=== PATIENT | male | born 1965 | race African-American/Black ===

== ENCOUNTER 2024-07-22 09:10 | Emergency (ER) | payer OTHER, SELFPAY ==
--- NOTE | ~2024-07-22 | XR_ITS ---
EXAM/PROCEDURE: XR chest 1V - 07/22/2024 09:40 CDT HISTORY: 59 years old Male with DIZZINESS, SLURRED SPEECH, WEAKNESS TECHNIQUE: AP view(s) of the chest. COMPARISON: None available. FINDINGS: LUNGS/ PLEURA: No focal consolidation. No appreciable pneumothorax or large pleural effusion. HEART/ MEDIASTINUM: Mild cardiomegaly. BONES: No acute osseous abnormality. OTHER: Visualized upper abdomen is unremarkable. IMPRESSION: No acute process. Mild cardiomegaly. Reviewed, dictated and finalized at location A.
--- NOTE | ~2024-07-22 | CT_ITS ---
EXAM: CTA brain carotid - 07/22/2024 10:20 CDT History: 59 years old Male with L sided HAs, vision changes, R hand tingling TECHNIQUE: CTA of the head and neck with intravenous contrast was performed. 3-D reconstructed image s of cerebral artery circulation were generated on a [employer] ([employer]) workstation. Automatic exposure contro l was used for this study. CONTRAST: 100 cc of Omnipaque 350 was used for this study COMPARISON: None available. FINDINGS: Normal branching pattern of the thoracic aorta. Great vessels of the neck are patent. RIGHT ANTERIOR CIRCULATION: Innominate and right common carotid artery is normal in caliber. No significant stenosis at the carotid bifurcation by NASCET criteria. Cervical segment of the internal carotid artery is normal in caliber. Cavernous and supraclinoid segm ents of the internal carotid artery patent. M1 segment and middle cerebral artery bifurcation are unremarkable. A1 segment, anterior communicating artery complex and A2 segment are within normal limits. LEFT ANTERIOR CIRCULATION: Left common carotid artery is normal in caliber. No significant stenosis at the carotid bifurcation by NASCET criteria. Cervical segment of the internal carotid artery is normal in caliber. Cavernous and supraclinoid segm ents of the internal carotid artery patent. M1 segment is grossly unremarkable. 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 Given the lack of imaging evidence on other views, the findings are likely projectional. A1 segment, anterior communicating artery complex and A2 segment are within normal limits. POSTERIOR CIRCULATION: Vertebral arteries are codominant and patent throughout the neck. Intradural vertebral arteries are normal in caliber and terminate as the basilar artery. Basilar artery is normal in caliber. P1 and P2 segments of the posterior cerebral arteries are normal in caliber. OTHER: Visualized lungs are clear. IMPRESSION: Unremarkable CTA of the head and neck. No evidence of cerebral artery aneurysm, stenosis or mass. 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 Given the lack of imaging evidence on other views, the findings are likely projectional. These findings were communicated to Mirela Lanza PA-C by Dr. Ayush Mayfield, on 07/22/2024 10:28 CDT at who expressed understanding. *REFERENCES: NASCET CRITERIA: The degree of internal carotid artery (ICA) stenosis is based on NASCET criteria. No rmal is no stenosis. Mild is less than 50% stenosis. Moderate is 50-69% stenosis. Severe is 70-99% st enosis. Total occlusion is no detectable patent lumen. Reviewed, dictated and finalized at location A. IMPRESSION: Unremarkable CTA of the head and neck. No evidence of cerebral artery aneurysm , stenosis or mass. 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 Given the lack of im aging evidence on other views, the findings are likely projectional. These findings were communicated to Mirela Lanza PA-C by Dr. Ayush amato, on 07/22/2024 10:28 CDT at who expressed understanding. *REFERENCES: NASCET CRITERIA: The degree of internal carotid artery (ICA) stenosis is based on NASCET criteria. Normal is no stenosis. Mild is less than 50% stenosis. Mode rate is 50-69% stenosis. Severe is 70-99% stenosis. Total occlusion is no detec table patent lumen.
--- NOTE | ~2024-07-22 | CT_ITS ---
EXAM: CT brain wo con - 07/22/2024 09:35 CDT History: 59 years old Male with L RODGERS, vision changes, R hand tingling COMPARISON: None available. PROCEDURE: CT of the head without contrast. Axial, sagittal and coronal reformatted planes were chris luated. Automatic exposure control was used for this study. FINDINGS: BRAIN PARENCHYMA: No acute hemorrhage. No mass effect or herniation. Hernández-white matter differentiatio n is maintained. Normal appearance of cortex. VENTRICLES/ EXTRA-AXIAL SPACES: No hydrocephalus or extra-axial fluid collection. EXTRACRANIAL STRUCTURES: No calvarial fracture. IMPRESSION: No evidence for acute intracranial hemorrhage or calvarial fracture. Reviewed, dictated and finalized at location A.
[2024-07-22 09:17] VITALS: BP 131/81; PULSE 52; RESP 16; TEMP 36.6; O2SAT 97
--- NOTE | 2024-07-22 09:27 | ECG_ITS ---
Test Date: 2024-07-22 09:36:19 Measurements Intervals [place] Rate: 52 P: 58 WA: 182 QRS: -6 QRSD: 92 T: 8 QT: 443 QTc: 414 Interpretive Statements SINUS BRADYCARDIA BORDERLINE ECG No previous ECG available for comparison Electronically Signed On 07-22-2024 09:48:51 CDT by Evans Rodriguez D.O.
[2024-07-22 09:48] LABS: Hematocrit 40.7 % (42.0-52.0); Hemoglobin 12.8 g/dL (14.0-18.0); Mean Corpuscular HGB Conc 31.4 g/dl (32-36); Mean Corpuscular Volume 82.7 fl (80-100); Mean Platelet Volume 12.3 fl (7.4-10.4); Platelet Count Result 204 k/mm3 (150-375); Red Blood Count 4.92 M/mm3 (4.6-6.20); Red Cell Distribution Width 14.5 % (11.5-14.5); White Blood Count 3.7 K/mm3 (4.5-10.0)
[2024-07-22] MEDS: ACETAMINOPHEN 500 MG TABLET 1000 MG PO (09:50)
[2024-07-22] MEDS: METOCLOPRAMIDE HCL INJ 10 MG/2 ML VIAL IV PUSH (09:50)
[2024-07-22] MEDS: SODIUM CHLORIDE 0.9% IV 1,000 ML 999 ML IV CONT (09:50)
[2024-07-22] MEDS: diphenhydrAMINE HCl INJ 50 MG/ML VIAL 25 MG IV PUSH (09:50)
[2024-07-22 10:01] LABS: INR 0.9; Partial Thromboplastin Time 27.3 Seconds (22.3-36.8)
[2024-07-22 10:11] LABS: Alanine Aminotransferase 27 U/L (6-50); Alkaline Phosphatase 60 U/L (38-126); Anion Gap 8 mmol/L (4-12); Aspartate Amino Transferase 32 U/L (17-59); Bilirubin,Total 0.3 mg/dL (0.2-1.3); Blood Urea Nitrogen 13 mg/dL (9-20); Calcium 9.1 mg/dL (8.4-10.2); Carbon Dioxide 28 mmol/L (22-30); Chloride 106 mmol/L (98-107); Estimated CRCL calculation 77 ml/min; Estimated Glomerular Filt Rate 52; Glucose 96 mg/dL (65-110); Potassium 4.1 mmol/L (3.4-5.0); Sodium 142 mmol/L (137-145)
--- NOTE | 2024-07-22 10:16 | ED.HA ---
HPI - Headache General Chief Complaint: Headache Stated Complaint: 12 hr left head pain blanked out Time Seen by Provider: 07/22/24 09:14 Source: patient Mode of arrival: ambulatory Limitations: no limitations History of Present Illness HPI Narrative: Patient is a 59-year-old male, with PMH of hypothyroidism, GERD, who presents the ED with report of left-sided headache. Patient reports he was out to dinner last night with his when he had a sudden onset of sharp pain in his left sided head. States pain radiated from his left occipital region throughout his left-sided head. He states he had sudden lack of his left eye vision any felt as though he nearly blacked out. He did not lose consciousness. States pain lasted for approximately 15 seconds before spontaneously resolving. Patient experienced recurrent symptoms this morning, again brief. He then prompted here for further evaluation. He does complain of a dull left-sided headache currently. He also reports having some tingling in his right hand currently. Denies vision changes currently. Reports feeling somewhat lightheaded. Denies weakness or numbness in lower extremities. Denies slurred speech or confusion. Denies history of migraines. Related Data Allergies Allergy/AdvReac Type Severity Reaction Status Date / Time No Known Allergies Allergy Verified 07/22/24 09:11 Review of Systems Review of Systems: All systems reviewed & are unremarkable except as noted in HPI. All systems reviewed & are unremarkable except as noted in HPI and below Exam Narrative: GENERAL: Well appearing, obese with BMI of 31.8, non-toxic, in no acute distress. HEAD: Normocephalic, atraumatic. EYES: PERRL/EOMI, conjunctivae clear bilaterally. No nystagmus. NECK: Supple. No meningeal signs. RESPIRATORY: Airway patent, respirations nonlabored. Clear to auscultation bilaterally, no rales, rhonchi, wheezing. CARDIOVASCULAR: Regular rate and rhythm without murmurs, rubs, or gallops. Peripheral pulses 2+ and equal bilaterally. MUSCULOSKELETAL: Moves all extremities. No gross deformities. SKIN: Warm, dry, normal color. No rashes. NEURO: A&O X3. Speech clear. Follows commands. CN II-XII intact. Subjective decreased sensation to right upper extremity compared to left upper extremity. No ataxic movements. Strength 5/5 in upper and lower extremities bilaterally. Knio-bn-rfyn and lgsjui-hx-rzyo testing intact bilaterally. No pronator drift. 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 PSYCHIATRIC: Appropriate mood and affect. Normal interaction. Course Vital Signs Vital signs: Vital Signs Temperature 98 F 07/22/24 09:17 Pulse Rate 52 L 07/22/24 09:17 Respiratory Rate 16 07/22/24 09:17 Blood Pressure 131/81 07/22/24 09:17 Pulse Oximetry 97 07/22/24 09:17 Oxygen Delivery Room Air 07/22/24 09:17 Temperature 98 F 07/22/24 09:17 Pulse Rate 50 L 07/22/24 10:48 Respiratory Rate 18 07/22/24 10:48 Blood Pressure 119/84 07/22/24 10:48 Pulse Oximetry 97 07/22/24 10:48 Oxygen Delivery Room Air 07/22/24 09:17 MDM - Headache MDM Narrative Medical decision making narrative: Patient presented to ED with intermittent left-sided headaches with brief vision changes, tingling in right-sided hand. Vital signs are stable upon arrival. Blood pressure stable. He currently complains of slight left-sided dull headache. Neurologic exam with subjective decreased sensation right upper extremity compared to left, otherwise intact. No other focal deficits appreciated. No current vision changes. CT brain noncontrast negative. EKG with sinus bradycardia, no concerning ST changes. Troponin undetectable. Basic laboratory studies are fairly unremarkable. White blood cell count 3.7. Creatinine 1.41. No records to compare to. Patient given fluids and migraine cocktail in the ED. On reeval, still having some discomfort but feeling improved. No severe pain like what occurred last night. CTA brain/carotids obtained, notified by radiologist about an area of stenosis in superior division of L MCA, however after additional imaging/views obtained, these findings were not seen. Likely projectional. Discussed case with Dr. Duffy, neurology, recommended MRA/MRI, will consult. Possibly occipital neuralgia? Patient w/o any tenderness over occipital region on exam. He is down in ED to see patient. Again recommends MRI/MRA. Discussed these recommendations with patient. He does not wish to be admitted at this time. States he would like to follow-up with his primary care doctor for this and outpatient imaging. He is adamant that he does not want to stay in the hospital. Discussed that with neurology recommending admission/further imaging, if patient decided to leave, he would need to sign out against medical advice. Patient is alert oriented x4, of sound mind, capable of making his own decisions, agreeable to sign out AMA. Discussed risks of leaving AMA, including recurrent CVA, , disability. Patient voiced understanding. Patient advised he can return at any time to resume evaluation. Given strict return precautions. Patient ambulatory out of the facility in stable condition. Medical Records Attestation: I reviewed the patient's medical records. Lab Data Attestation: I reviewed the patient's lab results. 07/22/24 09:31 07/22/24 09:31 Labs: Lab Results 07/22/24 Range/Units 09:31 WBC 3.7 L (4.5-10.0) K/mm3 RBC 4.92 (4.6-6.20) M/mm3 Hgb 12.8 L (14.0-18.0) g/dL Hct 40.7 L (42.0-52.0) % MCV 82.7 (80-100) fl MCH 26.0 (26-34) pg MCHC 31.4 L (32-36) g/dl RDW 14.5 (11.5-14.5) % Plt Count 204 (150-375) k/mm3 MPV 12.3 H (7.4-10.4) fl Immature Gran % (Auto) Not Reportable Neut % (Auto) Not Reportable Lymph % (Auto) Not Reportable [place] % (Auto) Not Reportable Eos % (Auto) Not Reportable Baso % (Auto) Not Reportable Lymph # (Auto) Not Reportable [place] # (Auto) Not Reportable Eos # (Auto) Not Reportable Baso # (Auto) Not Reportable Abs Immat Gran (auto) Not Reportable Absolute Neuts (auto) Not Reportable Absolute Nucleated RBC Not Reportable Nucleated RBC % Not Reportable PT 13.0 (11.1-14.7) Seconds INR 0.9 APTT 27.3 (22.3-36.8) Seconds Sodium 142 (137-145) mmol/L Potassium 4.1 (3.4-5.0) mmol/L Chloride 106 (98-107) mmol/L Carbon Dioxide 28 (22-30) mmol/L Anion Gap 8 (4-12) mmol/L BUN 13 (9-20) mg/dL Creatinine 1.41 H (0.7-1.3) mg/dL Estim Creat Clear Calc 77 ml/min Estimated GFR 52 L (59 - ) Glucose 96 (65-110) mg/dL Calcium 9.1 (8.4-10.2) mg/dL Total Bilirubin 0.3 (0.2-1.3) mg/dL AST 32 (17-59) U/L ALT 27 (6-50) U/L Alkaline Phosphatase 60 (38-126) U/L Troponin I < 0.012 (0.000-0.034) ng/mL Total Protein 7.0 (6.3-8.2) g/dL Albumin 4.0 (3.5-5.1) g/dL TSH (Reflex) 2.020 (0.465-4.68) uIU/mL Imaging Data Attestation: I personally reviewed and interpreted this imaging study as follows: Radiologist's impression: ITS Impressions Head CT 07/22/24 09:47 IMPRESSION: No evidence for acute intracranial hemorrhage or calvarial fracture. Chest X-Ray 07/22/24 09:50 IMPRESSION: No acute process. Mild cardiomegaly. Head/Neck CTA 07/22/24 10:40 IMPRESSION: Unremarkable CTA of the head and neck. No evidence of cerebral artery aneurysm, stenosis or mass. 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 Given the lack of imaging evidence on other views, the findings are likely projectional. These findings were communicated to Mirela Lanza PA-C by Dr. Ayush Mayfield, on 07/22/2024 10:28 CDT at who expressed understanding. *REFERENCES: NASCET CRITERIA: The degree of internal carotid artery (ICA) stenosis is based on NASCET criteria. Normal is no stenosis. Mild is less than 50% stenosis. Moderate is 50-69% stenosis. Severe is 70-99% stenosis. Total occlusion is no detectable patent lumen. ECG Data EKG #1: Attestation: I personally reviewed and interpreted this ECG as follows: ECG completion date: 07/22/24 ECG completion time: 09:36 EKG Interpretation: bradycardia (52), sinus rhythm and no ST changes Discharge Plan Discharge Clinical Impression: Left-sided headache, Paresthesias in right hand Patient Disposition: Left Against Medical Advice Condition: Stable Instructions: Antibiotic Form, Acute Headache (ED), Stroke Prevention (ED) Additional Instructions: It was recommended that you stay in the hospital to receive MRI/MRA imaging of your brain. You are deciding against this. Follow-up closely with your primary care doctor for further evaluation. You may return to the ED at any time to resume evaluation. Additionally, return if you experience recurrent symptoms, worsening or severe pain, vision changes, worsening numbness or weakness of arm or leg, or any other symptoms of concern. Patient Language: Marshallese Follow-up/Referrals: Andrea Duffy MD [Physician] - (NEUROLOGY) [facility] [Primary Care Provider] - Time of Disposition: 12:32
[2024-07-22 10:25] LABS: Troponin I < 0.012 ng/mL (0.000-0.034)
--- OUTSIDE RECORDS SUMMARY | 2024-07-22 10:26 | XMS_ITS | Continuity of Care Document ---
Author Name [facility] Organization [facility] Care Team Providers Care Rn Family Practice Name Role Phone [facility] Unavailable Unavailable Problems Combined list of problems from Department of Defense and Veterans Affairs facilities. It does not include entries that were removed or entered in error. Problem Status Onset Date Problem Type Date of Resolution Comments Source Anxiety Active Condition [facility] Bunion Active Condition [facility] Cervicalgia Active Condition [facility] Chronic kidney disease stage 3A Active Condition [facility] Exposure to potentially hazardous substance Active Condition [facility] Gastroesophageal reflux disease Active Condition [facility] Hoarseness Active Condition [facility] Hyperlipidemia Active Condition [facility] Hypothyroid (SNOMED CT 10259566) Active Condition [facility] Irritable bowel syndrome Active Condition [facility] Low back pain (SNOMED CT 722351776) Active Condition [facility] MED EXAM NEC-ADMIN PURP Active Condition [facility] Obesity Active Condition [facility] Prediabetes Active Condition [facility] Tinnitus Active Condition [facility] Vitamin D deficiency Active Condition [facility] Decreased Libido (ICD-9-CM 799.81) Inactive Condition 05/27/2023 [facility] Knee pain (SNOMED CT 52401202) Inactive Condition 05/27/2023 [facility] Metabolic bone disease Inactive Condition 05/27/2023 [facility] Numbness * (ICD-9-CM 782.0) Inactive Condition 05/27/2023 [facility] Pain in joint involving shoulder region (ICD-9-CM 719.41) Inactive Condition 05/27/2023 [facility] Stomach cramps Inactive Condition 05/27/2023 [facility] Vitamin B12 deficiency (non anemic) (SNOMED CT 68909763) Inactive Condition 06/14/2024 [facility] Vitamin D Deficiency Inactive Condition 05/27/2023 [facility] Wrist Pain Inactive Condition 05/27/2023 [facility] Diagnosis: ICD-10-CM Z02.89 Encounter for other administrative examinations Active Diagnosis [facility] Diagnosis: ICD-10-CM N18.31 Chronic kidney disease, stage 3a Active Diagnosis [facility] Diagnosis: ICD-10-CM R73.03 Prediabetes Active Diagnosis [facility] Diagnosis: ICD-10-CM Z00.00 Encntr for general adult medical exam w/o abnormal findings Active Diagnosis [facility] Diagnosis: ICD-10-CM Z23 Encounter for immunization Active Diagnosis [facility] Diagnosis: ICD-10-CM K58.9 Irritable bowel syndrome, unspecified Active Diagnosis [facility] Diagnosis: ICD-10-CM Z12.11 Encounter for screening for malignant neoplasm of colon Active Diagnosis [facility] Diagnosis: ICD-10-CM Z91.89 Oth personal risk factors, not elsewhere classified Active Diagnosis [facility] Medications Combined list of outpatient medications from Department of Defense and Veterans Affairs facilities.Medications provided include 1) outpatient medications from the last 15 months, and 2) patient-reported medications. Medication Details Route Status Patient Instructions Prescription Expires Prescription Number Last Dispense Date Ordering Provider Order Date Order Qty Source ACETAMINOPH EN TAB TAKE BY MOUTH FOUR TIMES A DAY NEEDED ORAL ACTIVE AUSTEN,SHE LBY R 2023 [facility] BISACODYL 5MG TAB,EC TAKE TWO TABLETS BY MOUTH DIRECTED AT 4PM 2 DAYS PRIOR TO TEST AND REPEAT AT 4PM ON DAY PRIOR TO TEST. CALL FOR QUESTION S. AT 4PM 2 DAYS PRIOR TO TEST AND REPEAT AT 4PM ON DAY PRIOR TO TEST. CALL FOR QUESTION S. ORAL 09/17/2023 [id number] 4 VALERIO TREJO 2023 4 [facility] BISACODYL 5MG TAB,EC TAKE TWO TABLETS BY MOUTH ONE TIME TAKE BISACODY L TABLETS AT 4PM ON AFTERNOO N PRIOR TO TEST. CALL [phone] WITH ANY QUESTION S ABOUT THESE INSTRUCT IONS. MAIL TAKE BISACODY L TABLETS AT 4PM ON AFTERNOO N PRIOR TO TEST. CALL WITH ANY QUESTION S ABOUT THESE INSTRUCT IONS. MAIL ORAL 06/26/2023 [id number] 4 Francine SALEEM 2023 2 [facility] N CHOLECALCIF JALEN 25MCG (1,000UNIT) TAB TAKE ONE TABLET BY MOUTH ONCE A DAY ORAL DISCONT INUED (EDIT) 05/28/2025 [id number] FRAN BOYCE VISHNUY R 2024 100 [facility] CHOLECALCIF JALEN 25MCG (1,000UNIT) TAB TAKE ONE TABLET BY MOUTH ONCE A DAY ORAL DISCONT INUED 05/27/2024 [id number] FRAN BOYCE LBY R 2023 100 [facility] CHOLECALCIF JALEN 50MCG (2,000UNIT) TAB TAKE ONE TABLET BY MOUTH ONCE A DAY ORAL ACTIVE 06/15/2025 [id number] 5 FRAN BOYCE LBY R 2024 100 [facility] CYANOCOBALA MIN 100MCG TAB TAKE ONE TABLET BY MOUTH ONCE A DAY FOR VITAMIN B12 SUPPLEME NTATION ORAL DISCONT INUED BY LEO R 06/26/2024 [id number] 4 FRAN BOYCE VISHNUY R 2023 100 [facility] DICYCLOMINE HCL 10MG CAP TAKE TWO CAPSULES BY MOUTH THREE TIMES A DAY FOR IRRITABL E BOWEL SYNDROME PAIN ORAL ACTIVE 02/12/2025 [id number] 5 [place] TRAN 2023 [facility] LEVOTHYROXI NE NA 75MCG TAB TAKE ONE TABLET BY MOUTH EVERY MORNING BEFORE A MEAL FOR THYROID. TAKE 30 MINUTES BEFORE FOOD. TAKE SEPARATE LY FROM ALL OTHER MEDICATI ONS. ORAL ACTIVE 05/28/2025 [id number] 5 FRAN BOYCE R 2024 90 [facility] LEVOTHYROXI NE NA 75MCG TAB TAKE ONE TABLET BY MOUTH EVERY MORNING BEFORE A MEAL FOR THYROID. TAKE 30 MINUTES BEFORE FOOD. TAKE SEPARATE LY FROM ALL OTHER MEDICATI ONS. ORAL DISCONT INUED 05/27/2024 [id number] 5 FRAN BOYCE R 2023 90 [facility] LIDOCAINE 5% PATCH APPLY 1 PATCH TO SKIN SITE ONCE A DAY NEEDED APPLY PATCH AND PRESS FIRMLY FOR 10-15 SECONDS. KEEP ON FOR 12 HOURS THEN REMOVE PATCH FOR 12 HOURS. TRANSD ERMAL ACTIVE 05/28/2025 [id number] 5 FRAN BOYCE R 2024 90 [facility] LIDOCAINE 5% PATCH APPLY 1 PATCH TO SKIN SITE ONCE A DAY NEEDED APPLY PATCH AND PRESS FIRMLY FOR 10-15 SECONDS. KEEP ON FOR 12 HOURS THEN REMOVE PATCH FOR 12 HOURS. TRANSD ERMAL DISCONT INUED 05/26/2024 [id number] 4 FRAN BOYCE R 2023 30 [facility] OMEPRAZOLE 40MG CAP,EC TAKE ONE CAPSULE BY MOUTH EVERY MORNING BEFORE A MEAL TO LOWER STOMACH ACID. TAKE 30 MINUTES PRIOR TO FOOD. ORAL ACTIVE 05/28/2025 [id number] 5 FRAN BOYCE R 2024 90 [facility] OMEPRAZOLE 40MG CAP,EC TAKE ONE CAPSULE BY MOUTH EVERY MORNING BEFORE A MEAL TO LOWER STOMACH ACID. TAKE 30 MINUTES PRIOR TO FOOD. ORAL DISCONT INUED 05/27/2024 [id number] 4 FRAN BOYCE R 2023 90 [facility] PEG-3350/EL ECTROLYTES PWDR MIX AND DRINK CONTENTS OF BOTTLE BY MOUTH DIRECTED FOR 2 DAYS BEFORE YOUR TEST ONLY DRINK CLEAR LIQUIDS- NO SOLID FOOD! AT 4PM TAKE THE 2 BISACODY L TABLETS AND MIX ONE GOLYTELY WITH WATER AND REFRIGER ATE. AT 7PM START TO DRINK THE GOLYTELY . REPEAT SAME PROCESS ON THE 2ND DAY. DO NOT DRINK ANYTHING AFTER MIDNIGHT . READ INSTRUCT ION SHEET! FOR 2 DAYS BEFORE YOUR TEST ONLY DRINK CLEAR LIQUIDS- NO SOLID FOOD! AT 4PM TAKE THE 2 BISACODY L TABLETS AND MIX ONE GOLYTELY WITH WATER AND REFRIGER ATE. AT 7PM START TO DRINK THE GOLYTELY . REPEAT SAME PROCESS ON THE 2ND DAY. DO NOT DRINK ANYTHING AFTER MIDNIGHT . READ INSTRUCT ION SHEET! ORAL 09/17/2023 [id number] 4 VALERIO TREJO 2023 2 [facility] N PEG-3350/EL ECTROLYTES PWDR MIX AND DRINK CONTENTS OF BOTTLE BY MOUTH DIRECTED (THE DAY BEFORE YOUR TEST ONLY DRINK CLEAR LIQUIDS- NO SOLID FOOD! TAKE THE BISACODY L TABLETS AT 4PM AND MIX THE GOLYTELY WITH WATER AND REFRIGER ATE. AT 7PM DRINK HALF OF THE GOLYTELY . REFRIGER ATE OVERNIGH T. COMPLETE GOLYTELY 3 HRS BEFORE LEAVING HOME FOR TEST. READ YOUR INSTRUCT IONS!) (THE DAY BEFORE YOUR TEST ONLY DRINK CLEAR LIQUIDS- NO SOLID FOOD! TAKE THE BISACODY L TABLETS AT 4PM AND MIX THE GOLYTELY WITH WATER AND REFRIGER ATE. AT 7PM DRINK HALF OF THE GOLYTELY . REFRIGER ATE OVERNIGH T. COMPLETE GOLYTELY 3 HRS BEFORE LEAVING HOME FOR TEST. READ YOUR INSTRUCT IONS!) ORAL 06/26/2023 [id number] Francine SALEEM 2023 1 [facility] N SIMETHICONE 80MG TAB,CHEW CHEW AND SWALLOW FOUR TABLETS BY MOUTH DIRECTED FOR GAS DISCOMFO RT FOR TWO DOSES BEFORE GI PROCEDUR E ORAL 09/17/2023 [id number] 4 VALERIO TREJO 2023 8 [facility] N SIMETHICONE 80MG TAB,CHEW CHEW AND SWALLOW FOUR TABLETS BY MOUTH DIRECTED FOR TWO DOSES BEFORE GI PROCEDUR E ORAL 06/26/2023 [id number] 4 Francine SALEEM HRISTINA 2023 8 [facility] N Immunizations Combined list of available immunizations from the Department of Defense and Veterans Affairs facilities. Immunization Series Date Given Administered By Site Reaction Lot Number CVX Code Drug Virtualization Engineer Status Comments Source INFLUENZA, SPLIT VIRUS, TRIVALENT, PF 2023 VINEET BARROS LEFT DELTO ID [id number] 140 complet ed [facility] N ZOSTER RECOMBINANT 2023 IRWIN ROJAS LEFT DELTO ID [id number] 187 complet ed [facility] ZOSTER RECOMBINANT 2023 ROSEMARIE SHEARER LEFT DELTO ID [id number] 187 complet [facility] INFLUENZA, INJECTABLE, QUADRIVALENT, PRESERVATIVE FREE 2022 VINEET BARROS LEFT DELTO ID [id number] 150 complet ed [facility] N INFLUENZA, INJECTABLE, QUADRIVALENT, PRESERVATIVE FREE 2021 LAN SANZ T LEFT DELTO ID [id number] 150 complet ed [facility] N INFLUENZA, INJECTABLE, QUADRIVALENT, PRESERVATIVE FREE 2020 150 complet ed [facility] N INFLUENZA, INJECTABLE, QUADRIVALENT, PRESERVATIVE FREE 2019 150 complet ed [facility] N INFLUENZA, INJECTABLE, QUADRIVALENT, PRESERVATIVE FREE 2017 150 complet ed [facility] TDAP 2016 115 complet ed Right Deltoid [facility] INFLUENZA, SEASONAL, INJECTABLE, PRESERVATIVE FREE 2015 140 complet ed [facility] N TDAP 2006 115 complet ed RAKESH Walker Results Combined list of recent chemistry, hematology and other laboratory results from Department of Defense and Veterans Affairs, ranging from 15 months to all on record, depending upon the facility. Order Name Results Value Reference Range Date Interpretation Specimen Comments Source PROTEIN URINE PROTEIN [MASS/VOLUM E] IN URINE 12.3 mg/dL 06/24 Specimen Type: URINE No comment entered. Ordering Provider: BELINAD BOSWELL Report Released Date/Time: Jun 22, 2024 10:24 AM Reporting Lab: [facility] [place] [address] Performing Lab: [facility] DIVISION MICRAL/CR EAT PROFILE (STL) ALBUMIN [MASS/VOLUM E] IN URINE 9 mg/L 06/24 Specimen Type: URINE No comment entered. Ordering Provider: BELINDA BOSWELL Report Released Date/Time: Jun 22, 2024 10:24 AM Reporting Lab: [facility] [place] [address] Performing Lab: [facility] DIVISION MICRAL/CR EAT PROFILE (STL) ALBUMIN/CRE ATININE [MASS RATIO] IN URINE 4 mg/g 0 - 29 06/24 Specimen Type: URINE No comment entered. Ordering Provider: BELINDA BOSWELL Report Released Date/Time: Jun 22, 2024 10:24 AM Reporting Lab: [facility] [place] [address] Performing Lab: [facility] MICRAL/CR EAT PROFILE (STL) CREATININE [MASS/VOLUM E] IN URINE 210.4 mg/dL 63.0 - 166.0 06/24 H Specimen Type: URINE No comment entered. Ordering Provider: BELINDA BOSWELL Report Released Date/Time: Jun 22, 2024 10:24 AM Reporting Lab: [facility] [place] [address] Performing Lab: [facility] DIVISION URINALYSI S (STL-PB) COLOR OF URINE Light- Yellow 05/28 Specimen Type: URINE No comment entered. Ordering Provider: KIMBERLEY BOYCE Report Released Date/Time: May 27, 2024 10:23 AM Reporting Lab: [facility] [place] [address] Performing Lab: [facility] URINALYSI S (STL-PB) BILIRUBIN.T OTAL [PRESENCE] IN URINE BY TEST STRIP Negati vemg/d L 05/28 Specimen Type: URINE No comment entered. Ordering Provider: KIMBERLEY BOYCE Report Released Date/Time: May 27, 2024 10:23 AM Reporting Lab: [facility] [place] [address] Performing Lab: [facility] URINALYSI S (STL-PB) PH OF URINE BY TEST STRIP 6.0 5.0 - 8.0 05/28 Specimen Type: URINE No comment entered. Ordering Provider: KIMBERLEY BOYCE Report Released Date/Time: May 27, 2024 10:23 AM Reporting Lab: [facility] [place] [address] Performing Lab: [facility] URINALYSI S (STL-PB) LEUKOCYTES [#/AREA] IN URINE SEDIMENT BY MICROSCOPY HIGH POWER FIELD 1 /[HPF] 0 - 5 05/28 Specimen Type: URINE No comment entered. Ordering Provider: KIMBERLEY BOYCE Report Released Date/Time: May 27, 2024 10:23 AM Reporting Lab: [facility] [place] [address] Performing Lab: [facility] URINALYSI S (STL-PB) ERYTHROCYTE S [#/VOLUME] IN URINE SEDIMENT BY MICROSCOPY HIGH POWER FIELD 3 /[HPF] 0 - 5 05/28 Specimen Type: URINE No comment entered. Ordering Provider: KIMBERLEY BOYCE Report Released Date/Time: May 27, 2024 10:23 AM Reporting Lab: [facility] [place] [address] Performing Lab: [facility] URINALYSI S (STL-PB) APPEARANCE OF URINE Clear 05/28 Specimen Type: URINE No comment entered. Ordering Provider: KIMBERLEY BOYCE Report Released Date/Time: May 27, 2024 10:23 AM Reporting Lab: [facility] [place] [address] Performing Lab: [facility] URINALYSI S (STL-PB) NITRITE [PRESENCE] IN URINE BY TEST STRIP Negati vemg/d L 05/28 Specimen Type: URINE No comment entered. Ordering Provider: KIMBERLEY BOYCE Report Released Date/Time: May 27, 2024 10:23 AM Reporting Lab: [facility] [place] [address] Performing Lab: [facility] URINALYSI S (STL-PB) EPITHELIAL CELLS [#/AREA] IN URINE SEDIMENT BY MICROSCOPY LOW POWER FIELD <1/[HP F] 0 - 5 05/28 Specimen Type: URINE No comment entered. Ordering Provider: KIMBERLEY BOYCE Report Released Date/Time: May 27, 2024 10:23 AM Reporting Lab: [facility] Performing Lab: [facility] URINALYSI S (STL-PB) MUCUS [PRESENCE] IN URINE SEDIMENT BY LIGHT MICROSCOPY RARE/[ LPF] 05/28 Specimen Type: URINE No comment entered. Ordering Provider: KIMBERLEY BOYCE Report Released Date/Time: May 27, 2024 10:23 AM Reporting Lab: [facility] [place] [address] Performing Lab: [facility] URINALYSI S (STL-PB) GLUCOSE [MASS/VOLUM E] IN URINE BY TEST STRIP Normal mg/dL 05/28 Specimen Type: URINE No comment entered. Ordering Provider: KIMBERLEY BOYCE Report Released Date/Time: May 27, 2024 10:23 AM Reporting Lab: [facility] [place] [address] Performing Lab: [facility] URINALYSI S (STL-PB) PROTEIN [MASS/VOLUM E] IN URINE BY TEST STRIP 20 mg/dL 05/28 H Specimen Type: URINE No comment entered. Ordering Provider: KIMBERLEY BOYCE Report Released Date/Time: May 27, 2024 10:23 AM Reporting Lab: [facility] [place] [address] Performing Lab: [facility] URINALYSI S (STL-PB) URN.UROBILI NOGEN Normal mg/dL 05/28 Specimen Type: URINE No comment entered. Ordering Provider: KIMBERLEY BOYCE Report Released Date/Time: May 27, 2024 10:23 AM Reporting Lab: [facility] [place] [address] Performing Lab: [facility] URINALYSI S (STL-PB) HEMOGLOBIN [MASS/VOLUM E] IN URINE BY TEST STRIP Negati vemg/d L 05/28 Specimen Type: URINE No comment entered. Ordering Provider: KIMBERLEY BOYCE Report Released Date/Time: May 27, 2024 10:23 AM Reporting Lab: [facility] [place] [address] Performing Lab: [facility] URINALYSI S (STL-PB) KETONES [MASS/VOLUM E] IN URINE BY TEST STRIP Negati vemg/d L 05/28 Specimen Type: URINE No comment entered. Ordering Provider: KIMBERLEY BOYCE Report Released Date/Time: May 27, 2024 10:23 AM Reporting Lab: [facility] [place] [address] Performing Lab: [facility] URINALYSI S (STL-PB) URN.LEUK.ES T. Negati vemg/d L 05/28 Specimen Type: URINE No comment entered. Ordering Provider: KIMBERLEY BOYCE Report Released Date/Time: May 27, 2024 10:23 AM Reporting Lab: [facility] [place] [address] Performing Lab: [facility] URINALYSI S (STL-PB) SPECIFIC GRAVITY OF URINE 1.027 05/28 Specimen Type: URINE No comment entered. Ordering Provider: KIMBERLEY BOYCE Report Released Date/Time: May 27, 2024 10:23 AM Reporting Lab: [facility] [place] [address] Performing Lab: [facility] HGA1C HEMOGLOBIN A1C/HEMOGLO BIN.TOTAL IN BLOOD 6.3 4.0 - 6.0 05/28 H Specimen Type: BLOOD No comment entered. Ordering Provider: KIMBERLEY BOYCE Report Released Date/Time: May 27, 2024 10:23 AM Reporting Lab: [facility] [place] [address] Performing Lab: [facility] VITAMIN D, 25-HYDROX Y 25-HYDROXYV ITAMIN D3 [MASS/VOLUM E] IN SERUM OR PLASMA 11.0 ng/mL 30 - 96 05/28 L Specimen Type: SERUM Comment: The listed sex of this patient may not be a typical indication for this test. Therefore, reference ranges or interpretiv e criteria listed may not be valid. Clinical correlation suggested. Ordering Provider: KIMBERLEY BOYCE Report Released Date/Time: May 27, 2024 10:23 AM Reporting Lab: [facility] [place] [address] Performing Lab: [facility] LIPID PANEL (STL) CHOLESTEROL [MASS/VOLUM E] IN SERUM OR PLASMA 215 mg/dL 0 - 200 05/28 H Specimen Type: PLASMA Comment: No hemolysis noted. Ordering Provider: KIMBERLEY BOYCE Report Released Date/Time: May 27, 2024 10:23 AM Reporting Lab: [facility] [place] [address] Performing Lab: [facility] LIPID PANEL (STL) TRIGLYCERID E [MASS/VOLUM E] IN SERUM OR PLASMA 134 mg/dL 0 - 150 05/28 Specimen Type: PLASMA Comment: No hemolysis noted. Ordering Provider: KIMBERLEY BOYCE Report Released Date/Time: May 27, 2024 10:23 AM Reporting Lab: [facility] [place] [address] Performing Lab: [facility] LIPID PANEL (STL) CHOLESTEROL IN LDL [MASS/VOLUM E] IN SERUM OR PLASMA BY CALCULATION 149 mg/dL 05/28 Specimen Type: PLASMA Comment: No hemolysis noted. Ordering Provider: KIMBERLEY BOYCE Report Released Date/Time: May 27, 2024 10:23 AM Reporting Lab: [facility] [place] [address] Performing Lab: [facility] LIPID PANEL (STL) CHOLESTEROL IN HDL [MASS/VOLUM E] IN SERUM OR PLASMA 39 mg/dL 40 05/28 L Specimen Type: PLASMA Comment: No hemolysis noted. Ordering Provider: KIMBERLEY BOYCE Report Released Date/Time: May 27, 2024 10:23 AM Reporting Lab: [facility] [place] [address] Performing Lab: [facility] TSH (MA-PB) THYROTROPIN [UNITS/VOLU ME] IN SERUM OR PLASMA 3.022 u[IU]/ mL 0.470 - 5.000 05/28 Specimen Type: SERUM Comment: The listed sex of this patient may not be a typical indication for this test. Therefore, reference ranges or interpretiv e criteria listed may not be valid. Clinical correlation suggested. Ordering Provider: KIMBERLEY BOYCE Report Released Date/Time: May 27, 2024 10:23 AM Reporting Lab: [facility] [place] [address] Performing Lab: [facility] PROST. SPECIFIC AG.(PB-ST L) PROSTATE SPECIFIC AG [MASS/VOLUM E] IN SERUM OR PLASMA 0.358 ng/mL 0.000 - 4.000 05/28 Specimen Type: SERUM Comment: The listed sex of this patient may not be a typical indication for this test. Therefore, reference ranges or interpretiv e criteria listed may not be valid. Clinical correlation suggested. Ordering Provider: KIMBERLEY BOYCE Report Released Date/Time: May 27, 2024 10:23 AM Reporting Lab: [facility] [place] [address] Performing Lab: [facility] B12 COBALAMIN (VITAMIN B12) [MASS/VOLUM E] IN SERUM OR PLASMA 227 pg/mL 213 - 816 05/28 Specimen Type: SERUM Comment: The listed sex of this patient may not be a typical indication for this test. Therefore, reference ranges or interpretiv e criteria listed may not be valid. Clinical correlation suggested. Ordering Provider: KIMBERLEY BOYCE Report Released Date/Time: May 27, 2024 10:23 AM Reporting Lab: [facility] [place] [address] Performing Lab: [facility] COMPREHEN SIVE METABOLIC PANEL CREATININE [MASS/VOLUM E] IN SERUM OR PLASMA 1.41 mg/dL 0.70 - 1.30 05/28 H Specimen Type: PLASMA Comment: No hemolysis noted. Ordering Provider: KIMBERLEY BOYCE Report Released Date/Time: May 27, 2024 10:23 AM Reporting Lab: [facility] [place] [address] Performing Lab: [facility] COMPREHEN SIVE METABOLIC PANEL UREA NITROGEN [MASS/VOLUM E] IN SERUM OR PLASMA 10.9 mg/dL 9.0 - 25.0 05/28 Specimen Type: PLASMA Comment: No hemolysis noted. Ordering Provider: KIMBERLEY BOYCE Report Released Date/Time: May 27, 2024 10:23 AM Reporting Lab: [facility] [place] [address] Performing Lab: [facility] COMPREHEN SIVE METABOLIC PANEL GLUCOSE [MASS/VOLUM E] IN SERUM OR PLASMA 94 mg/dL 72 - 99 05/28 Specimen Type: PLASMA Comment: No hemolysis noted. Ordering Provider: KIMBERLEY BOYCE Report Released Date/Time: May 27, 2024 10:23 AM Reporting Lab: [facility] [place] [address] Performing Lab: [facility] COMPREHEN SIVE METABOLIC PANEL SODIUM [MOLES/VOLU ME] IN SERUM OR PLASMA 141 meq/L 136 - 145 05/28 Specimen Type: PLASMA Comment: No hemolysis noted. Ordering Provider: KIMBERLEY BOYCE Report Released Date/Time: May 27, 2024 10:23 AM Reporting Lab: [facility] [place] [address] Performing Lab: [facility] COMPREHEN SIVE METABOLIC PANEL POTASSIUM [MOLES/VOLU ME] IN SERUM OR PLASMA 4.1 meq/L 3.5 - 5.0 05/28 Specimen Type: PLASMA Comment: No hemolysis noted. Ordering Provider: KIMBERLEY BOYCE Report Released Date/Time: May 27, 2024 10:23 AM Reporting Lab: [facility] [facility] [place] [address] Performing Lab: [facility] COMPREHEN SIVE METABOLIC PANEL CHLORIDE [MOLES/VOLU ME] IN SERUM OR PLASMA 106 meq/L 98 - 107 05/28 Specimen Type: PLASMA Comment: No hemolysis noted. Ordering Provider: KIMBERLEY BOYCE Report Released Date/Time: May 27, 2024 10:23 AM Reporting Lab: [facility] [place] [address] Performing Lab: [facility] COMPREHEN SIVE METABOLIC PANEL CARBON DIOXIDE, TOTAL [MOLES/VOLU ME] IN SERUM OR PLASMA 27 meq/L 22 - 31 05/28 Specimen Type: PLASMA Comment: No hemolysis noted. Ordering Provider: KIMBERLEY BOYCE Report Released Date/Time: May 27, 2024 10:23 AM Reporting Lab: [facility] [place] [address] Performing Lab: [facility] COMPREHEN SIVE METABOLIC PANEL CALCIUM [MASS/VOLUM E] IN SERUM OR PLASMA 9.8 mg/dL 8.4 - 10.4 05/28 Specimen Type: PLASMA Comment: No hemolysis noted. Ordering Provider: KIMBERLEY BOYCE Report Released Date/Time: May 27, 2024 10:23 AM Reporting Lab: [facility] [place] [address] Performing Lab: [facility] COMPREHEN SIVE METABOLIC PANEL PROTEIN [MASS/VOLUM E] IN SERUM OR PLASMA 8.0 g/dL 6.0 - 8.6 05/28 Specimen Type: PLASMA Comment: No hemolysis noted. Ordering Provider: KIMBERLEY BOYCE Report Released Date/Time: May 27, 2024 10:23 AM Reporting Lab: [facility] [place] [address] Performing Lab: [facility] COMPREHEN SIVE METABOLIC PANEL ALBUMIN [MASS/VOLUM E] IN SERUM OR PLASMA 4.3 g/dL 3.4 - 5.0 05/28 Specimen Type: PLASMA Comment: No hemolysis noted. Ordering Provider: KIMBERLEY BOYCE Report Released Date/Time: May 27, 2024 10:23 AM Reporting Lab: [facility] [place] [address] Performing Lab: [facility] COMPREHEN SIVE METABOLIC PANEL BILIRUBIN.T OTAL [MASS/VOLUM E] IN SERUM OR PLASMA 0.4 mg/dL 0.2 - 1.2 05/28 Specimen Type: PLASMA Comment: No hemolysis noted. Ordering Provider: KIMBERLEY BOYCE Report Released Date/Time: May 27, 2024 10:23 AM Reporting Lab: [facility] [place] [address] Performing Lab: [facility] COMPREHEN SIVE METABOLIC PANEL ALKALINE PHOSPHATASE [ENZYMATIC ACTIVITY/VO LUME] IN SERUM OR PLASMA 78 U/L 40 - 150 05/28 Specimen Type: PLASMA Comment: No hemolysis noted. Ordering Provider: KIMBERLEY BOYCE Report Released Date/Time: May 27, 2024 10:23 AM Reporting Lab: [facility] [place] [address] Performing Lab: [facility] COMPREHEN SIVE METABOLIC PANEL ASPARTATE AMINOTRANSF ERASE [ENZYMATIC ACTIVITY/VO LUME] IN SERUM OR PLASMA 20 U/L 5 - 34 05/28 Specimen Type: PLASMA Comment: No hemolysis noted. Ordering Provider: KIMBERLEY BOYCE Report Released Date/Time: May 27, 2024 10:23 AM Reporting Lab: [facility] [place] [address] Performing Lab: [facility] COMPREHEN SIVE METABOLIC PANEL ALANINE AMINOTRANSF ERASE [ENZYMATIC ACTIVITY/VO LUME] IN SERUM OR PLASMA 26 U/L 8 - 40 05/28 Specimen Type: PLASMA Comment: No hemolysis noted. Ordering Provider: KIMBERLEY BOYCE Report Released Date/Time: May 27, 2024 10:23 AM Reporting Lab: [facility] [place] [address] Performing Lab: [facility] COMPREHEN SIVE METABOLIC PANEL GLOMERULAR FILTRATION RATE/1.73 SQ M.PREDICTED [VOLUME RATE/AREA] IN SERUM, PLASMA OR BLOOD BY CREATININE- BASED FORMULA (CKD-EPI 2020) 58.49 60 05/28 Specimen Type: PLASMA Comment: No hemolysis noted. Ordering Provider: KIMBERLEY BOYCE Report Released Date/Time: May 27, 2024 10:23 AM Reporting Lab: [facility] [place] [address] Performing Lab: [facility] Vital Signs Combined list of inpatient and outpatient Vital Signs from Department of Defense and Veterans Affairs, ranging from 12 months to all on record, depending upon the facility. Vital Sign Value Date Comments Source SYSTOLIC BLOOD PRESSURE 124 06/22/2024 10:08:33 [facility] DIASTOLIC BLOOD PRESSURE 81 06/22/2024 10:08:33 [facility] PULSE OXIMETRY 95 06/22/2024 10:08:33 [facility] WEIGHT 277.9 06/22/2024 10:08:33 [facility] BMI 33 kg/m2 06/22/2024 10:08:33 [facility] PAIN 0 06/22/2024 10:08:33 [facility] HEIGHT 77 06/22/2024 10:08:33 [facility] TEMPERATURE 98.2 06/22/2024 10:08:33 [facility] PULSE 66 06/22/2024 10:08:33 [facility] Gopi [facility] RESPIRATION 16 06/22/2024 10:08:33 [facility] SYSTOLIC BLOOD PRESSURE 127 05/27/2024 09:39:22 [facility] DIASTOLIC BLOOD PRESSURE 87 05/27/2024 09:39:22 [facility] PULSE OXIMETRY 98 05/27/2024 09:39:22 [facility] WEIGHT 276.6 05/27/2024 09:39:[facility] BMI 33 kg/m2 05/27/2024 09:39:[facility] BEDS AT THE [facility] PAIN 3 05/27/2024 09:39:[facility] BEDS AT THE [facility] TEMPERATURE 99 05/27/2024 09:39:22 [facility] PULSE 60 05/27/2024 09:39:[facility]EDS AT THE [facility] RESPIRATION 18 05/27/2024 09:39:22 [facility] Encounters Combined list of: 1) Encounters from Department of Veterans Affairs facilities going backup to the last 18 months, not all VA inpatient encounters are included; 2) Encounters from the Department of Defense facilities going backup to 280 months. Location Location Details Encounter Type Encounter Number Reason For Visit Attending Provider ADM Date DC Date Status Disposition Source [facility] Outpatient Encounter [id number] 01/23 [facility] [place]UNIZATI [place] ADMIN [id number] Diagnos is: ICD-10- CM Z23 Encount er for immuniz atPROSPER Canales BAMBI N 01/[address] [facility] Outpatient Encounter [id number] 02/03 [facility] Outpatient Encounter [id number] KAILA BOYCE 02/04 [facility] Outpatient Encounter [id number] ENOC ATKINSON 02/04 [facility] Outpatient Encounter [id number] ENOC ATKINSON L 02/[address] [facility] ELECTROCAR DIOGRAM TRACING [id number] Diagnos is: ICD-10- CM Z91.89 Oth persona l risk factors , not elsewhe re classif ied ENOC ATKINSON L 02/07 [facility] Outpatient Encounter [id number] 02/18 [facility] Outpatient Encounter [id number] 02/19 [facility] Outpatient Encounter [id number] EN[facility] ATKINSON 02[facility] En[facility] [id number] 02/25 [facility] Outpatient Encounter [id number] ENOC ATKINSON 02/25 [facility] Outpatient Encounter [id number] 02/26 [facility] Outpatient Encounter [id number] 03/12 [facility] Outpatient Encounter [id number] 04/25 [facility] Outpatient Encounter [id number] MARILYNN BRINK 04/25 [facility] Outpatient Encounter [id number] 05/06 [facility] HC PRO PHONE CALL 5-10 MIN [id number] [id number] SHARA SHEARER 05/21 [facility] Outpatient Encounter [id number] SANDOVAL VILLARREAL 05/23 [facility] Outpatient Encounter [id number] 05/[address] [facility] Outpatient Encounter [id number] Diagnos is: ICD-10- CM Z00.00 Encntr for general adult medical exam w/o abnorma l finding s BOYCE,KAILA BY R 05/26 [facility] Outpatient Encounter [id number] 05/26 [facility] Outpatient Encounter [id number] Diagnos is: ICD-10- CM Z12.11 Encount er for screeni ng for maligna nt neoplas m of colon STIVEN,PADMINI RISTINA 05/27 [facility] Outpatient Encounter [id number] 05/[address] [facility] IMMUNIZATI ON ADMIN [id number] Diagnos is: ICD-10- CM N18.31 Chronic kidney disease , stage 3a SHARA SHEARER ERLY C 06/12 [facility] Outpatient Encounter [id number] 06/25 [facility] Outpatient Encounter [id number] 06/29 [facility] Outpatient Encounter [id number] 08/14 [facility] [place] SED SAME PHYS/[place] [id number] Diagnos is: ICD-10- CM Z12.11 Encount er for screeni ng for maligna nt neoplas m of colon SUDHEER GARZA 08/17 [facility] Outpatient Encounter [id number] 08/17 [facility] Outpatient Encounter [id number] 08/[address] [facility] IMMUNIZATI ON ADMIN [id number] Diagnos is: ICD-10- CM Z23 Encount er for immuniz AICHA Sher 08/31 [facility] Outpatient Encounter [id number] 09/[address] [facility] Outpatient Encounter [id number] 09/03 [facility] Outpatient Encounter [id number] 09/04 [facility] Outpatient Encounter [id number] 09/08 [facility] Outpatient Encounter [id number] ENOC ATKINSON 09/22 [facility] Outpatient Encounter [id number] 09/25 [facility] Outpatient Encounter [id number] 10/06 [facility] Outpatient Encounter [id number] ENOC ATKINSON 10/30 [facility] Outpatient Encounter [id number] ENOC ATKINSON 10[facility] En[facility] [id number] 11/10 [facility] En[facility] [id number] [id number] ENOC ATKINSON SANGEETHA L 12/30 [facility] Encounter [id number] [id number] 1 12/30 [facility] Outpatient Encounter [id number] [id number] ENOC ATKINSON SANGEETHA L 12/31 [facility] Outpatient Encounter [id number] [id number] 01/07 [facility] Outpatient Encounter [id number] [id number] 0 ENOC ATKINSON L 01/07 [facility] Outpatient Encounter [id number] 01/07 [facility] Outpatient Encounter [id number] 01/08 [facility] Encounter [id number] [id number] ENOC ATKINSON SANGEETHA L 01/12 [facility] Outpatient Encounter [id number] [id number] 01/27 [facility] Outpatient Encounter [id number] AICHA ROJAS 02/03 [facility] Outpatient Encounter [id number] 02/10 [facility] DIAGNOSTIC COLONOSCOP Y [id number] [id number] Diagnos is: ICD-10- CM K58.9 Irritab le bowel syndrom e, unspeci fied MOISES TRAN 02/11 [facility] Outpatient Encounter [id number] 02/11 [facility] Outpatient Encounter [id number] 02/11 [facility] Outpatient Encounter [id number] [id number] ATKINSONENOC 02/12 [facility] Outpatient Encounter [id number] [id number] 02/17 [facility] Outpatient Encounter [id number] 03/15 [facility] Outpatient Encounter [id number] 03/17 [facility] IMMUNIZATI ON ADMIN [id number] Diagnos is: ICD-10- CM Z23 Encount er for immuniz PROSPER Lopez 04/05 [facility] Outpatient Encounter [id number] Diagnos is: ICD-10- CM Z00.00 Encntr for general adult medical exam w/o abnorma l KAILA Lopez BY Ermias 05/27 [facility] Outpatient Encounter [id number] 05/[address] [facility] SYNCH AUDIO-ONLY EST LOW 20 [id number] Diagnos is: ICD-10- CM R73.03 Prediab zhou KAILA BOYCE BY Ermias 06/14 [facility] OFFICE O/P EST MOD 30 MIN [id number] Diagnos is: ICD-10- CM N18.31 Chronic kidney disease , stage 3a ALBINO BOSWELL 06/[address] [facility] PH1 ASSMT&MGMT NQHP 5-10 [id number] Diagnos is: ICD-10- CM Z02.89 Encount er for other adminis trative examina tions Michael DEL CID J 06/23 [facility] Outpatient Encounter [id number] Michael DEL CID J 06/28 [facility] Out[facility] Encounter [id number] 06/28 [facility] Outpatient Encounter [id number] Michael DEL CID J 06/29 [facility] Outpatient Encounter [id number] Michael DEL CID J 06/30 [facility] N Social History Combined list of available smoking, tobacco, and other social history from Department of Defense and Veterans Affairs facilities. Social History Type Response Date Comment Sour e Tobacco smoking status NHIS VA-TOBACCO NEVER USED 08/08/2022 [facility] History of tobacco use VA-TOBACCO NEVER USED 09/06/2020 Darline EMMANU[facility] History of tobacco use NM-TOBACCO NEVER USED [facility] History of tobacco use LIFETIME NON-USER OF TOBACCO 11/06[facility] History of tobacco use LIFETIME NON-USER OF TOBACCO 08/14[facility] History of tobacco use LIFETIME NON-USER OF TOBACCO 11/25/[facility] History of tobacco use LIFETIME NON-USER OF TOBACCO 05[facility]14/2013 [facility] History of tobacco use LIFETIME NON-USER OF TOBACCO 08/12/2008 [facility]
--- OUTSIDE RECORDS SUMMARY | 2024-07-22 10:26 | XMS_ITS | Encounter Summary ---
Author Name [facility] [place] [facility] Address [address] [place] [address] Care Team Providers Care Wet Wheeler Name Role Phone DEVORA BOYCE Primary Care Provider Unavailabl e Insurance Providers: All historical and current Section Date Range: From patient's date of to the date document was created. This section includes the names of all active insurance providers for the patient. Insurance Provider Type of Coverage Plan Name Start of Policy Coverage End of Policy Coverage Group Number Member ID Insurance Provider's Telephone Number Policy Montero's Name Patient's Relationship to Policy Montero Selected Encounter This section includes the information on record at [place] for the Encounter. Date/Time Encounter Type Encounter Description Reason Provider Source May 27, 2024 10:00 AM Outpatient Encounter PRIMARY CARE/MEDICINE ICD-10-CM Z00.00 Encntr for general adult medical exam w/o abnormal findings DEVORA BOYCE Encounter Template Text not used by [place] Assessments - Encounter Diagnoses This section includes the primary and secondary diagnoses documented for the Encounter. Date/Time Primary/Secondary Diagnosis Diagnosis Name Provider Source May 27, 2024 10:37 AM PRIMARY Encntr for general adult medical exam w/o abnormal findings DEVORA BOYCE [facility] May 27, 2024 10:37 AM SECONDARY Anxiety disorder, unspecified DEVORA BOYCE [facility] May 27, 2024 10:37 AM SECONDARY Bunion of unspecified foot DEVORA BOYCE [facility] May 27, 2024 10:37 AM SECONDARY Cervicalgia DEVORA BOYCE [facility] May 27, 2024 10:37 AM SECONDARY Chronic kidney disease, stage 3a DEVORA BOYCE Darline [facility] May 27, 2024 10:37 AM SECONDARY Gastro-esophageal reflux disease without esophagitis DEVORA BOYCE [facility] May 27, 2024 10:37 AM SECONDARY Hyperlipidemia, unspecified DEVORA BOYCE Darline [facility] May 27, 2024 10:37 AM SECONDARY Hypothyroidism, unspecified DEVORA BOYCE Darline [facility] May 27, 2024 10:37 AM SECONDARY Irritable bowel syndrome, unspecified DEVORA BOYCE Darline [facility] May 27, 2024 10:37 AM SECONDARY Low back pain, unspecified DEVORA BOYCE Darline [facility] May 27, 2024 10:37 AM SECONDARY Obesity, unspecified DEVORA BOYCE [facility] May 27, 2024 10:37 AM SECONDARY Other vitamin B12 deficiency anemias DEVORA BOYCE [facility] May 27, 2024 10:37 AM SECONDARY Prediabetes DEVORA BOYCE Darline [facility] May 27, 2024 10:37 AM SECONDARY Tinnitus, unspecified ear DEVORA BOYCE Darline [facility] May 27, 2024 10:37 AM SECONDARY Vitamin D deficiency, unspecified DEVORA BOYCE [facility] Plan of Treatment: Future Appointments (+ 6 months) and Future Tests (+/- 45 days) The Plan of Treatment section includes future care activities for the patient from all [facility]. This section includes future appointments and future orders which are active, pending or scheduled. Future Appointments This section includes appointments that were scheduled to occur 6 months from the date of the Encounter, up to a maximum of 20 appointments. The data comes from all [facility]. Appointment Date/Time Appointment Type Appointme nt Facility Name Jun 14, 2024 02:00 PM AMBULATORY - MEDICINE [facility] Jun 22, 2024 10:00 AM AMBULATORY - MEDICINE [facility] Jun 23, 2024 03:00 PM AMBULATORY - MEDICINE [facility] Jun 28, 2024 02:00 PM AMBULATORY - MEDICINE [facility] Lab Results: +/- 30 days of the encounter This section includes the Chemistry and Hematology Lab Results on record with [facility] for the patient. Radiology Reports and Pathology Reports are provided separately, in subsequent sections. Lab Results This section contains the Chemistry/Hematology Results that were resulted 30 days before or 30 daysafter the date of the Encounter. Date/Time Source Result Type Result - Unit Interpretation Reference Range Comment Jun 24, 2024 01:13 PM [facility] PROTEIN URINE Specimen Type: URINE No comment entered. Ordering Provider: ARTIE BOSWELL Report Released Date/Time: Jun 22, 2024 10:24 AM Reporting Lab: [facility] [id number] Performing Lab: [facility] [place] [address] PROTEIN URINE 12.3 mg/dL See Interp Jun 24, 2024 01:[address] [facility] MICRAL/CREAT PROFILE (STL) Specimen Type: URINE No comment entered. Ordering Provider: ARTIE BOSWELL Report Released Date/Time: Jun 22, 2024 10:24 AM Reporting Lab: [facility] [id number] Performing Lab: [facility] [id number] URINE ALBUMIN (PB-STL) 9 mg/L No range refer to micral/crea t ratio uACR (STL) 4 mg/g 0-29 CREATININE URINE/OTHERS 210.4 mg/dL H 63.0-166.0 May 28, 2024 11:40 AM [facility] URINALYSIS (STL-PB) Specimen Type: URINE No comment entered. Ordering Provider: DEVORA BOYCE Report Released Date/Time: May 27, 2024 10:23 AM Reporting Lab: [facility] [place] [address] Performing Lab: [facility] [place] [address] URINE COLOR Light-Yellow Yellow U.BILIRUBIN Negative mg/dL Negative U.PH 6.0 5.0-8.0 URINE WBC/HPF 1 /[HPF] 0-5 URINE RBC/HPF 3 /[HPF] 0-5 APPEARANCE Clear Clear U.NITRITE Negative mg/dL Negative SQUAMOUS EPITH. <1 /[HPF] 0-5 MUCUS RARE /[LPF] Negative -Ra re URN.GLUCOSE Normal mg/dL Negative URN.PROTEIN 20 mg/dL H URN.UROBILINOGE N Normal mg/dL Normal URN.BLOOD Negative mg/dL Negat jan-Tr alex URN.KETONES Negative mg/dL Neg ative-Tr alex URN.LEUK.EST. Negative mg/dL N egative-Tr alex URN.SPECIFIC GRAVITY 1.027 May 28, 2024 11:32 AM [facility] HGA1C Specimen Type: BLOOD No comment entered. Ordering Provider: DEVORA BOYCE Report Released Date/Time: May 27, 2024 10:23 AM Reporting Lab: [facility] [place] [address] Performing Lab: [facility] [place] [address] HGA1C 6.3 H 4.0-6.0 May 28, 2024 11:32 AM [facility] VITAMIN D, 25-HYDROXY Specimen Type: SERUM Comment: The listed sex of this patient may not be a typical indication for this test. Therefore, reference ranges or interpretive criteria listed may not be valid. Clinical correlation suggested. Ordering Provider: DEVORA BOYCE Report Released Date/Time: May 27, 2024 10:23 AM Reporting Lab: [facility] [place] [address] Performing Lab: [facility] [place] [address] VITAMIN D, 25-HYDROXY 11.0 ng/mL L 30-96 May 28, 2024 11:32 AM [facility] LIPID PANEL (STL) Specimen Type: PLASMA Comment: No hemolysis noted. Ordering Provider: DEVORA BOYCE Report Released Date/Time: May 27, 2024 10:23 AM Reporting Lab: [facility] [place] [address] Performing Lab: [facility] [place] [address] CHOLESTEROL 215 mg/dL H 0-200 TRIGLYCERIDE 134 mg/dL 0-150 CALCULATED LDL 149 mg/dL See Interp HDL(New) 39 mg/dL L > 40 May 28, 2024 11:32 AM [facility] TSH (MA-PB) Specimen Type: SERUM Comment: The listed sex of this patient may not be a typical indication for this test. Therefore, reference ranges or interpretive criteria listed may not be valid. Clinical correlation suggested. Ordering Provider: DEVORA BOYCE Report Released Date/Time: May 27, 2024 10:23 AM Reporting Lab: [facility] [place] [address] Performing Lab: [facility] [place] [address] TSH 3.022 u[IU]/mL 0.470-5.000 May 28, 2024 11:32 AM [facility] PROST. SPECIFIC AG.(PB-STL) Specimen Type: SERUM Comment: The listed sex of this patient may not be a typical indication for this test. Therefore, reference ranges or interpretive criteria listed may not be valid. Clinical correlation suggested. Ordering Provider: DEVORA BOYCE Report Released Date/Time: May 27, 2024 10:23 AM Reporting Lab: [facility] [place] [address] Performing Lab: [facility] [place] [address] PROST. SPECIFIC AG.(PB-STL) 0.358 ng/mL 0.000-4.000 May 28, 2024 11:32 AM [facility] B12 Specimen Type: SERUM Comment: The listed sex of this patient may not be a typical indication for this test. Therefore, reference ranges or interpretive criteria listed may not be valid. Clinical correlation suggested. Ordering Provider: DEVORA BOYCE Report Released Date/Time: May 27, 2024 10:23 AM Reporting Lab: [facility] [place] [address] Performing Lab: [facility] [place] [address] B12 227 pg/mL 213-816 May 28, 2024 11:32 AM [facility] COMPREHENSIVE METABOLIC PANEL Specimen Type: PLASMA Comment: No hemolysis noted. Ordering Provider: DEVORA BOYCE Report Released Date/Time: May 27, 2024 10:23 AM Reporting Lab: [facility] [place] [address] Performing Lab: [facility] [place] [address] CREATININE 1.41 mg/dL H 0.70-1.30 UREA NITROGEN 10.9 mg/dL 9.0-25.0 GLUCOSE 94 mg/dL 72-99 SODIUM 141 meq/L 136-145 POTASSIUM 4.1 meq/L 3.5-5.0 CHLORIDE 106 meq/L 98-107 CARBON DIOXIDE 27 meq/L 22-31 CALCIUM 9.8 mg/dL 8.4-10.4 PROTEIN 8.0 g/dL 6.0-8.6 ALBUMIN 4.3 g/dL 3.4-5.0 TOTAL BILIRUBIN 0.4 mg/dL 0.2-1.2 ALKALINE PHOSPHATASE 78 U/L 40-150 AST/SGOT 20 U/L 5-34 ALT/SGPT 26 U/L 8-40 EGFR (CKD-EPI 2020) 58.49 >60 May 28, 2024 11:32 AM [facility] CBC Specimen Type: BLOOD No comment entered. Ordering Provider: DEVORA BOYCE Report Released Date/Time: May 27, 2024 10:23 AM Reporting Lab: [facility] [place] [address] Performing Lab: [facility] [id number] WBC 3.6 10*3/uL 3.6-11.2 RBC 5.33 10*6/uL 4.10-5.70 HGB 14.0 g/dL 13.1-16.8 HCT 43.3 38.2-48.4 MCV 81.2 fL 80.0-100.0 MCH 26.3 pg L 27.0-34.0 MCHC 32.3 g/dL L 33.0-36.0 PLT 211 10*3/uL 150-400 MPV 11.8 fL H 7.5-11.2 RDW 14.5 11.8-15.1 LYMPHOCYTES, AUTO % 51 MONOCYTES, AUTO % 11 NEUTROPHILS, AUTO % 36 EOSINOPHILS, AUTO % 1 BASOPHILS, AUTO % 1 LYMPHOCYTES, ABSOLUTE 1.84 10*3/uL 0.77-4.50 MONOCYTES, ABSOLUTE 0.38 10*3/uL 0.19-0.80 NEUTROPHILS, ABSOLUTE 1.31 10*3/uL L 2.10-8.00 EOSINOPHILS, ABSOLUTE 0.05 10*3/uL 0.00-0.60 BASOPHILS, ABSOLUTE 0.03 10*3/uL 0.00-0.20 Vital Signs: All taken on the encounter date This section contains inpatient and outpatient Vital Signs collected on the date of the Encounter. Date/Time Temperature Pulse Blood Pressure Respiratory Rate SP02 Pain Height Weight Body Mass Index Source May 27, 2024 09:39 AM 99 60 127/87 18 98 3 276.6 33 [facility] Social History: Smoking Status (Most current) and Tobacco Use (All prior to encounter date) This section includes the most current, and the historical, smoking and tobacco- related health factors from the [place] facility where the Encounter took place. Current Smoking Status This section includes the most current smoking, or tobacco-related health factor, from the [place] facility where the Encounter took place. Date/Time Current Smoking Status Comment Facil ity September 06, 2020 03:30 PM [facility]-TOBACCO NEVER USED [facility] Tobacco Use History This section includes a history of the smoking, or tobacco-related health factors, that were collected on or before the date of the Encounter. The data comes from the [place] facility where the Encounter took place. Date/Time Smoking Status/Tobacco Use Comment F acility Apr 27, 2018 02:36 PM [facility]-TOBACCO NEVER USED [facility] Nov 06, 2016 02:56 PM LIFETIME NON-USER OF TOBACCO [facility] August 14, 2016 02:09 PM LIFETIME NON-USER OF TOBACCO [facility] Nov 25, 2014 12:51 PM LIFETIME NON-USER OF TOBACCO [facility] May 14, 2013 11:31 AM LIFETIME NON-USER OF TOBACCO [facility] August 12, 2008 07:48 AM LIFETIME NON-USER OF TOBACCO [facility] Encounter Notes: All associated encounter notes This section contains the clinical notes associated to the Encounter. Date/Time Encounter Note(s) Provider Source Jun 04, 2024 01:42 PM PHYSICIAN LETTERS: LOCAL TITLE: TEST RESULT GENERAL LETTER STL STANDARD TITLE: PHYSICIAN LETTERS DATE OF NOTE: JUN 04, 2024@13:42 ENTRY DATE: JUN 04, 2024@13:42:17 AUTHOR: DEVORA BOYCE EXP COSIGNER: URGENCY: STATUS: COMPLETED [facility] [address] [place] [address] JUN 04, 2024 SILVER NORMAN JR, [address] [place], [place] [address] Dear Silver Richardson, We discussed these results on the phone. This copy is for your reference. LIPID PROFILE - High cholesterol and triglycerides (lipids) are risk factors for heart disease. Your cholesterol should fall between 140 and 200, and your triglycerides levels should be less than or equal to 150. HDL is the good cholesterol and should ideally be greater than 40. LDL is the bad cholesterol and optimal levels should be less than 100 (near optimal is between 100 and 129). TRIGLYCERIDE 134 mg/dL 05/28/2024 11:32 CHOLESTEROL 215 H mg/dL 05/28/2024 11:32 HDL(New) 39 L mg/dL 05/28/2024 11:32 CALCULATED LDL 149 mg/dL 05/28/2024 11:32 These results are abnormal. Statin medication therapy is recommended as discussed on the phone. -HDL's (high-density lipoproteins) and LDL's (low-density lipoproteins) transport cholesterol in your blood. LDLs carry cholesterol into your cells and HDLs carry it away and dispose of it in the liver, having a protective effect on your circulatory system. -HDL is good cholesterol and should be above 50. -LDL is bad cholesterol and should be less than 100 for most people including diabetics and less than 70 for people with heart disease. This level is the most important predictor of heart disease in a cholesterol panel. -Triglycerides (TG) are fatty compounds that are a combination of three (tri) fatty acids and glycerin. Body fat is made up of mostly stored triglycerides. -Triglycerides are another type of fat in the blood and should be less than 150. -Total cholesterol should be less than 200. You can improve these values by changing your diet and exercise regimen. Please review the following recommendations: -Incorporate 30-minutes of exercise with walking 5 days per week. Increasing your physical activity can help with weight management and improve your cholesterol levels. -Carefully review nutrition labels. Decrease intake of saturated fats or trans-fats. Monitor your salt intake. -Reduce your intake of sugars such as cake or candy. Additional hidden sugars are found foods such as pastries, breads, and pasta. Monitor your intake of these items as well and try not to consume on a daily basis. -Increase your intake of fresh or frozen fruits and vegetables which is preferred over canned or processed items. Canned foods have high amounts of sugar and salt. -Low fat dairy products are encouraged. -Leaner meats such as chicken or fish can have less fat that beef or pork. HEMOGLOBIN A1C - Gives us information about your diabetes (sugar or glucose) control over the past 3 months. Your target is to keep your A1C below 7 %. HGA1C 6.3 H % 05/28/2024 11:32 These results are consistent with previous trend. Continue to check blood sugars as recommended. Reduce the intake of sugary foods/beverages as well as eliminate regular soda. Monitor the frequency and portion sizes of pasta, bread, cereal, potatoes, white rice etc. Eat more whole grains including whole grain breads and pasta when possible. CBC - A complete blood count (CBC) gives important information about the kinds and numbers of cells in the blood, especially red blood cells, white blood cells, and platelets. HGB 14.0 g/dL 05/28/2024 11:32 HEMATOCRIT 43.3 % (05/28/24 11:32) PLT 211 10*3/uL 05/28/2024 11:32 WHITE BLOOD COUNT 3.6 10*3/uL (05/28/24 11:32) These readings are within normal limits. B12 - Helps maintain healthy nerve cells, red blood cells, and is also needed to make DNA. B12 227 pg/mL 05/28/2024 11:32 These readings are within normal limits. CHEM 7 - This is important information about the current status of your kidneys, liver, and electrolyte and acid/base balance as well as of your blood sugar and blood proteins. SODIUM 141 mEq/L 05/28/2024 11:32 POTASSIUM 4.1 mEq/L 05/28/2024 11:32 CHLORIDE 106 mEq/L 05/28/2024 11:32 UREA NITROGEN 10.9 mg/dL 05/28/2024 11:32 CREATININE 1.41 H mg/dL 05/28/2024 11:32 CALCIUM 9.8 mg/dL 05/28/2024 11:32 CARBON DIOXIDE 27 mEq/L 05/28/2024 11:32 GLUCOSE 94 mg/dL 05/28/2024 11:32 EGFR (CKD-EPI 2020) 58.49 05/28/2024 11:32 These results are consistent with previous trend. Please attend upcoming [place] renal appointment for further evaluation. Your kidney function is decreased. The best way to protect your kidneys is to keep your blood pressure and blood sugar in good control. This can be achieved by taking your prescribed medications and by eating a low salt (for blood pressure) and low carbohydrate (for blood sugar) diet. Please ensure you are adequately hydrated, and avoid medications toxic to the kidneys such as ibuprofen, and naproxen. LIVER FUNCTION PANEL - These are tests for liver function: PROTEIN 8.0 g/dL 05/28/2024 11:32 ALBUMIN 4.3 g/dL 05/28/2024 11:32 TOTAL BILIRUBIN 0.4 mg/dL 05/28/2024 11:32 ALKALINE PHOSPHATASE 78 U/L 05/28/2024 11:32 AST/SGOT 20 U/L 05/28/2024 11:32 ALT/SGPT 26 U/L 05/28/2024 11:32 These readings are within normal limits. PSA - Prostate-specific antigen is a protein produced by cells of the prostate gland. The PSA test measures the level of PSA in the blood. PSA PROST. SPECIFIC AG.(PB-STL) 0.358 ng/mL 05/28/2024 11:32 These readings are within normal limits. TSH - Thyroid-stimulating hormone (also known as TSH or thyrotropin) is a peptide hormone synthesized and secreted by thyrotrope cells in the anterior pituitary gland, which regulates the endocrine function of the thyroid gland. TSH 3.022 uIU/mL 05/28/2024 11:32 These readings are within normal limits. VITAMIN D - Helps promote the proper utilization of calcium and phosphorus, thereby producing proper bone maintenance. VITAMIN D, 25-HYDROXY 11.0 L ng/mL 05/28/2024 11:32 These results are abnormal. Your vitamin D level is low. A normal Vitamin D ranges between 30-96. People get vitamin D from food and sunlight. Some people are at higher risk of not getting enough vitamin D, especially those with dark skin, overweight, or adults over 65. Foods high in vitamin D includes: Milk, orange juice, yogurt, salmon, canned tuna fish, cod liver oil and cereals with vitamin D added. Most people have no symptoms. In severe cases, deficiency can lead to thin brittle, or misshapen bones. Vitamin D helps bone health by promoting calcium uptake and maintaining enough calcium and phosphorus for bone growth and bone replacement. Research has also found that vitamin D helps control conditions such as diabetes, high blood pressure, cardiovascular disease, and muscle pain/weakness. Vitamin D supplementation is the main treatment. I have ordered for you to start taking a vitamin D supplement. Please take the D2 Ergocalciferol weekly supplement first for 12 weeks. Once you have completed the weekly supplement, please start taking the daily cholecalciferol (vitamin D3) 50 mcg supplement daily. These should be mailed to you. URINALYSIS - A urinalysis (or UA ) is an array of tests performed on urine and one of the most common methods of medical diagnosis. URINALYSIS URINE COLOR Light-Yellow 05/28/2024 11:40 APPEARANCE Clear 05/28/2024 11:40 U.PH 6.0 05/28/2024 11:40 U.BILIRUBIN Negative mg/dL 05/28/2024 11:40 U.NITRITE Negative mg/dL 05/28/2024 11:40 URINE RBC/HPF 3 /HPF 05/28/2024 11:40 URINE WBC/HPF 1 /HPF 05/28/2024 11:40 SQUAMOUS EPITH. <1 /HPF 05/28/2024 11:40 MUCUS RARE /LPF 05/28/2024 11:40 These readings are within normal limits. If you have any questions please call your special education case manager. I look forward to seeing you at your next clinic appointment. Thank you for choosing the [facility] for your healthcare. FUTURE APPOINTMENTS: 06/22/2024 10:00 TERELL-RENAL SHIEH 06/23/2024 15:00 TERELL-ST CLR VVC PCMHI BH PS 05/31/2025 15:30 TERELL-ST CLR PACT 3 PCP Sincerely, Devora Boyce DNP, DIGITAL CAMERA TECHNICIAN, ALMOND SORTER-C Primary Care Nurse Practitioner SILVER RICHARDSON JR, SHELBY R [facility] May 27, 2024 10:08 AM NURSING NOTE: LOCAL TITLE: V15 PACT FACE TO FACE NOTE ST STANDARD TITLE: NURSING NOTE DATE OF NOTE: MAY 27, 2024@10:08 ENTRY DATE: MAY 27, 2024@10:08:40 AUTHOR: ASHLEY SHEARER COSIGNER: URGENCY: STATUS: COMPLETED Provider Visit: Patient Identifiers : Full Name Date of Reason for visit: Established Follow-Up Patient states he is here for a routine visit/abdomen pain. Mode of Arrival: Ambulatory Allergy Review: Patient has answered NKA Allergy list reviewed and remains current. Recent Vital Signs: Temperature: 99 F [37.2 C] (05/27/2024 09:39) Pulse: 60 (05/27/2024 09:39) Respiration: 18 (05/27/2024 09:39) B/P: 127/87 (05/27/2024 09:39) Pain: 3 (05/27/2024 09:39) Wt: 276.6 lb [125.46 kg] (05/27/2024 09:39) Ht: 77 in [195.6 cm] (11/15/2022 13:04) BMI: 32.9 POX: 98% (05/27/2024 09:39) PERSONAL HEALTH INVENTORY Notes: No data available for PHI note titles PERSONAL HEALTH INVENTORY - MAP: No data available for PHI MAP What matters most to you in your life right now? - [place]'s Response: family WHOLE HEALTH SHARED GOALS: PERSONAL HEALTH PLAN - SHARED GOALS: 09/06/2020 [facility] Shared Goals SHARED GOALS continue to be healthy Would you like to discuss any personal problem, family problem, alcohol use, drug use, or a mental or emotional illness? No My [facility] ([facility]), please select appointment type: Face to face: Yes- Done Contact provided Primary Care phone number and encouraged to call if any questions or concerns. Review that after hours nurse line [phone] and emergency room are available 04/11 for patient use. Contact verbalized good understanding. Suicide Screen - V: C-SSRS Screening [place] Suicide Severity Rating Scale (C-SSRS) screener 1. Over the past month, have you wished you were or wished you could go to sleep and not wake up? No 2. Over the past month, have you had any actual thoughts of killing yourself? No 3. Over the past month, have you been thinking about how you might do this? Response not required due to responses to other questions. 4. Over the past month, have you had these thoughts and had some intention of acting on them? Response not required due to responses to other questions. 5. Over the past month, have you started to work out or worked out the details of how to kill yourself? Response not required due to responses to other questions. 6. If yes, at any time in the past month did you intend to carry out this plan? Response not required due to responses to other questions. 7. In your lifetime, have you ever done anything, started to do anything, or prepared to do anything to end your life (for example, collected pills, obtained a gun, gave away valuables, went to the roof but didn't jump)? No 8. If YES, was this within the past 3 months? Response not required due to responses to other questions. Alcohol Use Screen (AUDIT-C) - V: Alcohol Screen: SCREEN FOR ALCOHOL (AUDIT-C) An alcohol screening test (AUDIT-C) was negative (score=0). 1. How often did you have a drink containing alcohol in the past year? Consider a drink to be a 12 ounce can or bottle of regular beer, 8 ounces of malt liquor, a 5 ounce glass of table wine, or a 1.5 ounce shot of liquor (like scotch, gin, or vodka). Never 2. How many drinks containing alcohol did you have on a typical day when you were drinking in the past year? Response not required due to responses to other questions. 3. How often did you have six or more drinks on one occasion in the past year? Response not required due to responses to other questions. Depression Screening - V: Perform PHQ-2 A PHQ-2 screen was performed. The score was 2 which is a negative screen for depression. Over the past two weeks, how often have you been bothered by the following problems? 1. Little interest or pleasure in doing things Several days 2. Feeling down, depressed, or hopeless Several days Homelessness/Food Insecurity Screen - DI,L,N,P,PH,PS,S,U: In the past 2 months, have you been living in stable housing that you own, rent, or stay in as part of a household? Yes - Living in stable housing. Are you worried or concerned that in the next 2 months you may NOT have stable housing that you own, rent, or stay in as part of a household? No - Not worried about housing near future The [place] reports the following: Within the past 12 months, you worried whether your food would run out before you got money to buy more. Never true Within the past 12 months, the food you bought just didn't last and you didn't have money to get more. Never true Learning Assessment: - * This patient's learning ABILITIES, BARRIERS to learning, CULTURAL and UATSDIN beliefs, and learning PREFERENCES were assessed. Following are findings of note: Patient reads well. Patient has the following hearing/auditory barrier(s) to consider when teaching: Hard of hearing. Patient has the following speech barrier to consider when teaching: No speech barrier identified. LANGUAGE Patient reports that Wallisian is preferred language for healthcare. 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 Patient has the following vision barrier(s) to consider when teaching: Requires glasses/contacts for reading Patient has the following dexterity/mobility barrier(s) to consider when teaching: Otherback,legs Patient has the following cognitive/memory barrier(s) to consider when teaching: Has difficulty in remembering instructions/names Patient has the following emotional/psychological barrier(s) to consider when teaching: Otherdepression COVID-19 Immunization - L,N,P,PH,U: Refused Pfizer Monovalent COVID-19 vaccine Immunization: COVID-19 (PFIZER), MRNA, LNP-S, PF, ELVIRA-SUCROSE, 30 MCG/0.3 ML (AGES 12+ YEARS) Refusal Reason: PATIENT DECISION Patient refuses all immunization(s) in the COVID-19 group Date Documented: 05/27/24 10:13 /nicholas/ ASHLEY SHEARER LPN LICENSED PRACITCAL NURSE Signed: 05/27/2024 10:13 ASHLEY SHEARER [facility] May 27, 2024 10:04 AM PRIMARY CARE NOTE: LOCAL TITLE: PRIMARY CARE PROVIDER ESTABLISHED VISIT ST STANDARD TITLE: PRIMARY CARE NOTE DATE OF NOTE: MAY 27, 2024@10:04 ENTRY DATE: MAY 27, 2024@10:04:12 AUTHOR: DEVORA BOYCE EXP COSIGNER: URGENCY: STATUS: COMPLETED REASON FOR VISIT/CHIEF COMPLAINT: Evaluation and management of chronic medical conditions/ My scheduled visit HPI: Patient is a 58 year old BLACK OR MALE who presents to the clinic for evaluation and management of chronic medical conditions. Patient denies any recent ED visits or hospitalizations. Patient goes by [facility]. Private providers: -Private optometry at [facility]. #Prediabetes: -HGA1C 6.2 H % 02/07/2023. #HLD: -Diet controlled. #Obesity: -BMI: 32.87. -Diet: Regular. -Exercise: Denies. #CKD stage 3A: CREATININE 1.55 H mg/dL 09/15/2023 12:22 EGFR (CKD-EPI 2020) 52.21 09/15/2023 12:22 -[place] managed per [facility] renal, last visit in 2021. #Hypothyroidism: -Medication: Levothyroxine. -Patient reports medication compliance. #Anxiety: -Chronic, ongoing. -Denies SI/HI. -[place] requesting [facility] psychology consult. #Hoarseness: -Improved per patient. - Patient found to have paired ovoid mucosal lesions at mid-TVF most consistent with vocal fold nodules. 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 No concerns for malignancy. -Patient evaluated by [facility] speech therapy in 2022. #GERD: -Medication: Omeprazole. -Reports compliance with medication regimen. -Denies concerns today. #IBS: -Medication: DICYCLOMINE. #Bilateral bunions: -Had removal of Bunion L/2nd hammertoe L in March 21, 2023 via [facility] podiatry. - had surgery at [facility] for right distal chevron surgery 10/10/23 with revision on 03/26/[address] Mar. #Vitamin D deficiency: -Reports compliance with supplementation. #B12 Deficiency: -Denies compliance with supplementation. #Chronic LBP/Cervicalgia: -Chronic in nature. -Onset: Age 21. -Duration: Intermittent. -Character: Sharp. -Aggravating factors: Prolonged standing, prolonged activity, bending over. -Relieving factors: Rest, heating pad. -Medications: Tylenol PRN and Lidocaine patches. Has trialed various medications without relief. -Treatments: Has participated in acupuncture, chiropractor and PT historically. -Injury: Denies. -Imaging: Has obtained historically. -Denies bowel or bladder incontinence and saddle anesthesia. -Patient has been evaluated by [facility] pain management historically at the [facility]. #Tinnitus: -Chronic, stable. SOURCE(S) OF HISTORY: Patient PAST MEDICAL HISTORY: 1) Low back pain (SNOMED CT 345822586) 2) Hypothyroid (SNOMED CT 14018867) 3) Vitamin B12 deficiency (non anemic) (SNOMED CT 50032840) 4) Chronic kidney disease stage 3A 5) Gastroesophageal reflux disease 6) Bunion 7) Hyperlipidemia 8) Prediabetes 9) Obesity 10) Hoarseness 11) Vitamin D deficiency 12) Cervicalgia 13) Exposure to potentially hazardous substance 14) Irritable bowel syndrome SOCIAL HISTORY: Tobacco: Denies. Alcohol: Denies. Reports he quit drinking March 2024. Illicit: Denies. 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 -[place] got to 01/22/24. ALLERGIES: Patient has answered NKA ALLERGY REVIEW: Allergy list reviewed and remains current. MEDICATIONS: Active and Recently Outpatient Medications (excluding Supplies): Active Outpatient Medications Status 1) CHOLECALCIF 25MCG (D3-1,000UNIT) TAB TAKE ONE TABLET BY ACTIVE MOUTH ONCE A DAY Indication: FOR VITAMIN D DEFICIENCY 2) CYANOCOBALAMIN 100MCG TAB TAKE ONE TABLET BY MOUTH ONCE A ACTIVE DAY Indication: FOR VITAMIN B12 SUPPLEMENTATION 3) DICYCLOMINE HCL 10MG CAP TAKE TWO CAPSULES BY MOUTH THREE ACTIVE TIMES A DAY Indication: FOR IRRITABLE BOWEL SYNDROME PAIN 4) LEVOTHYROXINE NA 75MCG TAB TAKE ONE TABLET BY MOUTH EVERY ACTIVE MORNING BEFORE A MEAL FOR THYROID. TAKE 30 MINUTES BEFORE FOOD. TAKE SEPARATELY FROM ALL OTHER MEDICATIONS. 5) OMEPRAZOLE 40MG EC CAP TAKE ONE CAPSULE BY MOUTH EVERY ACTIVE MORNING BEFORE A MEAL TO LOWER STOMACH ACID. TAKE 30 MINUTES PRIOR TO FOOD. Inactive Outpatient Medications Status 1) LIDOCAINE 5% PATCH APPLY 1 PATCH TO SKIN SITE ONCE A DAY NEEDED APPLY PATCH AND PRESS FIRMLY FOR 10-15 SECONDS. KEEP ON FOR 12 HOURS THEN REMOVE PATCH FOR 12 HOURS. Indication: FOR LOCAL ANESTHESIA 6 Total Medications REVIEW OF SYSTEMS: Constitutional: Denies weight loss, fever, chills. Ears, Nose, Mouth, Throat: Denies nasal drainage or sore throat. Denies dizziness. Endocrinology: Denies heat or cold intolerance, polydipsia, polyuria, or polyphagia. Cardiovascular: Denies chest pain, palpitations, or dizziness. Respiratory: Denies cough or shortness of breath. ABD/GI: Denies abdominal pain, nausea, vomiting, constipation, diarrhea or incontinence. Musculoskeletal/Extremities: Denies edema. Denies pain. /MANAGER OF INTERNAL AUDIT: Denies frequency, hesitancy, urgency, or hematuria. Psychology: Denies insomnia or SI/HI. Denies depression. Neurology: Denies RODGERS, tremors, neuropathy, or seizures. Skin: Denies rashes, skin lesions. PHYSICAL EXAMINATION: VITALS (most recent, as listed in the electronic record): Temperature: 99 F [37.2 C] (05/27/2024 09:39) BP: 127/87 (05/27/2024 09:39) Pulse: 60 (05/27/2024 09:39) Resp: 18 (05/27/2024 09:39) PulsOx: 98% (05/27/2024 09:39) Pain: 3 (05/27/2024 09:39) Weight: Measurement DT WEIGHT LB(KG)[BMI] 05/27/2024 09:39 276.6(125.46)[33*] HEENT: EOMI, PERRLA, Moist mucous membranes. No Scleral icterus or cervical lymphadenopathy. Lungs: Clear to auscultation bilaterally. No accessory muscle use. Cardiovascular: Regular rate and rhythm. No murmur. No JVD. Abdomen: Soft, nontender and non-distended. No palpable masses. Positive bowel sounds in all four quadrants. Extremities: No edema. Nontender. Full ROM to all joints. Gait steady. : Deferred. Neurologic: No focal neurological deficits. Psychiatric: Appropriate mood and affect. Skin: Skin warm, dry and intact. No lesions or rashes noted. DATA REVIEW: HGA1C 6.2 H % 02/07/2023 09:43 Lipid Panel: TRIGLYCERIDE 128 mg/dL 02/07/2023 09:43 CHOLESTEROL 204 H mg/dL 02/07/2023 09:43 HDL(New) 44 mg/dL 02/07/2023 09:43 CALCULATED LDL 134 mg/dL 02/07/2023 09:43 CMP: SODIUM 141 mEq/L 09/15/2023 12:22 POTASSIUM 4.0 mEq/L 09/15/2023 12:22 CHLORIDE 107 mEq/L 09/15/2023 12:22 UREA NITROGEN 15.9 mg/dL 09/15/2023 12:22 CREATININE 1.55 H mg/dL 09/15/2023 12:22 CALCIUM 9.5 mg/dL 09/15/2023 12:22 PROTEIN 7.9 g/dL 09/15/2023 12:22 ALBUMIN 4.3 g/dL 09/15/2023 12:22 ALKALINE PHOSPHATASE 79 U/L 09/15/2023 12:22 ALT/SGPT 36 U/L 09/15/2023 12:22 AST/SGOT 25 U/L 09/15/2023 12:22 TOTAL BILIRUBIN 0.4 mg/dL 09/15/2023 12:22 CARBON DIOXIDE 26 mEq/L 09/15/2023 12:22 GLUCOSE 92 mg/dL 09/15/2023 12:22 EGFR (CKD-EPI 2020) 52.21 09/15/2023 12:22 CBC: WBC 3.6 10*3/uL 09/15/2023 12:22 RBC 5.30 10*6/uL 09/15/2023 12:22 HGB 13.9 g/dL 09/15/2023 12:22 HCT 42.9 % 09/15/2023 12:22 MCV 80.9 fL 09/15/2023 12:22 MCH 26.2 L pg 09/15/2023 12:22 MCHC 32.4 L g/dL 09/15/2023 12:22 RDW 14.7 % 09/15/2023 12:22 PLT 219 10*3/uL 09/15/2023 12:22 MPV 11.4 H fL 09/15/2023 12:22 NEUTROPHILS, AUTO % 38 % 09/15/2023 12:22 LYMPHOCYTES, AUTO % 48 % 09/15/2023 12:22 MONOCYTES, AUTO % 11 % 09/15/2023 12:22 EOSINOPHILS, AUTO % 1 % 09/15/2023 12:22 BASOPHILS, AUTO % 1 % 09/15/2023 12:22 NEUTROPHILS, ABSOLUTE 1.36 L 10*3/uL 09/15/2023 12:22 LYMPHOCYTES, ABSOLUTE 1.71 10*3/uL 09/15/2023 12:22 MONOCYTES, ABSOLUTE 0.39 10*3/uL 09/15/2023 12:22 EOSINOPHILS, ABSOLUTE 0.05 10*3/uL 09/15/2023 12:22 BASOPHILS, ABSOLUTE 0.02 10*3/uL 09/15/2023 12:22 PSA: PROST. SPECIFIC AG.(PB-STL) 0.264 ng/mL 02/07/2023 09:43 Result: Acceptable. Health maintenance: -Declines immunizations today. Immunization Series Date Facility Reaction Info INFLUENZA, SPLIT VIRUS, TRIVALEN* 04/05/2024 [facility] TDAP 08/14/2016 [facility] <C> TDAP 10/26/2006 [place] [facility] C 09/01/2023 [facility]OST[facility] RECOMBINANT 06/13/2023 [facility] Colonoscopy:02/12/24: Impression: - The entire examined colon is normal. - No specimens collected. Recommendation: - Repeat colonoscopy in 10 years for surveillance. PSA: 0.264 ng/mL 02/07/2023. Eye exam: Evaluation and management per private optometry. Labs ordered: CBC, CMP, A1C, Lipid panel, Vitamin D, TSH, B12, PSA and UA (will obtain at a later date fasting). ASSESSMENT/PLAN: Annual visit: -Routine labs reviewed. -Preventative health screenings reviewed. -Recommend regular eye exams. -Discussed Fall Safety. -Continue wearing mask in public and wash hands frequently. -Immunizations reviewed. Prediabetes: -Reviewed lifestyle modifications. -Dietitian contact information given. HLD: -Reviewed lifestyle modifications including participating in a low fat/low cholesterol diet. -Dietitian contact information given. Obesity: -Reviewed lifestyle modifications. -MOVE program and dietitian contact information given. CKD stage 3A: -Recommended to stay hydrated and to avoid NSAIDs. -Reviewed lifestyle modifications. -Hotel Baggage Handler contact information given. -[facility]. Hypothyroidism: -Continue medication regimen. Anxiety: -Reviewed lifestyle modifications. - crisis line and whole health contact information given. -[facility] P[facility] consult placed. declines warm hand off today. Hoarseness: -Evaluation and management per [facility] ENT with RTC recommended PRN. GERD: -Continue medication regimen. -Reviewed lifestyle modifications. -Educated to avoid triggering foods such as alcohol, caffeinated drinks, chocolate, coffee, spicy foods, citrus foods, tomatoes etc. IBS: -Continue medication regimen. -Lifestyle modifications reviewed. -Evaluation and management per [facility] GI. Bilateral bunions: -Evaluation and management per [facility] podiatry. Discussed with patient to notify the clinic when this consult is required to be renewed. Vitamin D Deficiency: -Continue medication regimen. -Reviewed foods high in vitamin D including: Milk, orange juice, yogurt, salmon, canned tuna fish, cod liver oil and cereals with vitamin D added. B12 Deficiency: -B12 level ordered to determine supplementation. Chronic LBP/Cervicalgia: -Continue medication regimen. -Whole health contact information given. - declines further evaluation and/or management today. Tinnitus: -Audiology contact information given. -Educated to avoid loud noises, avoid cotton swabs and to keep ears dry. RETURN TO CLINIC: 1 year or earlier as needed. SUMMARY STATEMENT: Plan of care has been discussed with including expected therapeutic benefits and potential side effects of prescribed medication and treatments. [place] verbalizes understanding and is in agreement with the plan of care. Patient was instructed to keep all scheduled appointments and contact sand mill operator facing sand for any additional problems. Medication Reconciliation Opt STL: I have reviewed the patient's medication list (including active outpatient prescriptions [facility] ([facility]) and dispensed from another [facility] or [facility] facility (remote) as well as inpatient orders (local pending and active), local clinic medications, locally documented non-VA medications, and local prescriptions that have or been discontinued in the past 90 days.) with the patient and/or his/her care-resident caregiver. Handwritten corrections, additions and/or deletions were made to the list, as appropriate. Corrected Outpatient Medication List was provided to the patient/caregiver. Sexual Orientation - CP,L,N,P,PH,PS,S,U: The patient thinks of their sexual orientation as: Straight or Heterosexual /nicholas/ Devora R Boyce DNP, DIGITAL CAMERA TECHNICIAN, ALMOND SORTER-C Primary Care Nurse Practitioner Signed: 05/27/2024 10:37 DEVORA BOYCE [facility]
--- OUTSIDE RECORDS SUMMARY | 2024-07-22 10:26 | XMS_ITS | Data Portability ---
Author Organization [place] [facility] [place] [employer] [facility], Main Office Address [address] [place] [address] Assessment Encounter Date Assessment Date Assessment LastModified by Organization Details LastModified Time 01/26/2024 01/26/2024 This note is dictated and transcribed by [employer]. Conversion Developer variances may occur. Despite proofreading, typographical errors may occur. Occasional wrong-word or 'zbmgg-d-nmkb' substitutions may have occurred due to the inherent limitations of voice recording. Read the chart carefully and recognize, using context, where substitutions have occurred. Not available 01/26/2024 09:56:21 02/16/2024 02/16/2024 fluency notes This note is dictated and transcribed by [employer]. Conversion Developer variances may occur. Despite proofreading, typographical errors may occur. Occasional wrong-word or 'yumtt-i-ncud' substitutions may have occurred due to the inherent limitations of voice recording. Read the chart carefully and recognize, using context, where substitutions have occurred. Not available 02/26/2024 11:26:37 03/15/2024 03/15/2024 fluency notes This note is dictated and transcribed by [employer]. Conversion Developer variances may occur. Despite proofreading, typographical errors may occur. Occasional wrong-word or 'dgytg-o-tmye' substitutions may have occurred due to the inherent limitations of voice recording. Read the chart carefully and recognize, using context, where substitutions have occurred. Not available 03/15/2024 10:56:59 03/29/2024 03/29/2024 This note is dictated and transcribed by [employer]. Conversion Developer variances may occur. Despite proofreading, typographical errors may occur. Occasional wrong-word or 'vinzq-m-mleg' substitutions may have occurred due to the inherent limitations of voice recording. Read the chart carefully and recognize, using context, where substitutions have occurred. Not available 03/29/2024 10:00:20 04/22/2024 04/22/2024 This note is dictated and transcribed by [employer]. Conversion Developer variances may occur. Despite proofreading, typographical errors may occur. Occasional wrong-word or 'uoqbf-c-xtot' substitutions may have occurred due to the inherent limitations of voice recording. Read the chart carefully and recognize, using context, where substitutions have occurred. Not available 04/22/2024 10:02:38 Plan of Treatment Reminders Order Date Submit Date Provider Last Modified By Organization Details Last Modified Time Details Appointments None record ed. Lab None record ed. Referral None record ed. Procedures None record ed. Surgeries None record ed. Imaging XR, foot, 3 or more view 024 03/15/20 24 [email or web address] [facility] [place] [facility] [place], [address], [place], [address], 4 10:58:36 XR, foot, 3 or more view 024 02/26/20 24 YOU [facility] [place], [address], [place], [address], 4 11:29:44 XR, foot, 3 or more view 024 01/26/20 24 [email or web address] [facility] [place] [facility] [place], [address], [place], [address], 4 10:25:57 Medication Orders None record ed. Patient TargetsNo targets recorded. Patient InstructionsNo instructions recorded. Reason for Referral None Reported. Results Created Date Observation Date Name Description Value Unit Range Abnormal Flag Note LastModifiedBy Organization Detail LastModifiedTime 01/05/20 XR, foot, 3 or more view No observ ation record ed. [email or web address] [facility] [place] [address], [place], [address], 01/05/2024 10:35:01 01/26/20 24 XR, foot, 3 or more view No observ ation record ed. [email or web address] [facility] [place] [address], [place], [address], 01/26/2024 10:25:56 02/26/20 24 XR, foot, 3 or more view No observ ation record ed. [email or web address] [facility] [place] [address], [place], [address], 02/26/2024 11:28:39 03/15/20 24 XR, foot, 3 or more view No observ ation record ed. [email or web address] [facility] [place] [address], [place], [address], 03/15/2024 10:58:34 Result Notes None recorded. Problems Name Problem SNOMED Code Status Onset Date Resolution Date Notes Provider Name and Address Organization Details Recorded Time Anxiety 26676512 Active 2022 Lolis lopez [facility] 10:21:05 Arthritis 1315630 Active 2022 Lolis lopez [facility] [employer] [facility] 3 10:21:11 History of gastrointe stinal bleed 691032782 Active 2022 Lolis lopez [facility] [employer] 3 10:21:41 Disorder of thyroid gland 26992017 Active 2022 Lolis lopez [facility] [employer] [facility] 3 10:21:58 Bunion 502248887 Active 2022 Gera Mar DPM [address] [facility], [place], [address] , [facility] 3 10:52:58 Pain in both feet 2663679235305 9102 Active 2022 Gera Mar DPM [address], [address], [place], [address] , [facility] 3 10:53:14 Hammer toe 765854127 Active 2022 Gera Mar DPM [address], [address], [place], [address] , [facility] 3 10:53:21 Postoperat jan visit 154033808 Active 2022 Gera Mar DPM [address], [address], [place], [address] , [facility] 3 11:28:12 Dehiscence of external surgical incision wound 8405355135571 08 Active 2023 Gera Mar DPM [address], [address], [place], [address] , [facility] 4 10:42:43 Pain in right foot 3287163320481 07 Active 2023 Gera Mar DPM [address], [address], [place], [address] , [facility] 4 10:15:48 Pain in right lower limb 098924124 Active 2023 Gera Mar DPM [address], [address], [place], [address] , [facility] 4 14:40:59 Postoperat jan care Active 2023 Gera Mar DPM [address], [address], [place], [address] , [facility] 4 15:04:32 Postoperat jan pain 401021140 Active 2023 Gera Mar DPM [address], [address], [place], [address] , [employer] [facility] 10:18:52 Diabetes mellitus 06370706 Active 2023 Gera aMr DPM [address], [address], [place], [address] , [employer] [facility] 4 10:23:10 Notes:BACK/NECK PROBLEMS Problem Notes None recorded. Procedures Surgical History Date Name Laterality Status Provider Name and Address Organization Details Recorded Time Suture Removal completed Gera Mar DPM [address], [address], [place], [address], [employer] [facility] 11/03/2023 10:35:58 Imaging Results Imaging Date Name Status LastModified by [facility] Details LastModified Time 01/05/2024 XR, foot, 3 or more view [email or web address] [place] [address], [place], [address], 01/05/2024 10:35:01 01/26/2024 XR, foot, 3 or more view completed [email or web address] [facility] [place] [address], [place], [address], 01/26/2024 10:25:56 02/26/2024 XR, foot, 3 or more view completed [email or web address] [facility] [place] [address], [place], [address], 02/26/2024 11:28:39 03/15/2024 XR, foot, 3 or more view completed [email or web address] [facility] [place] [address], [place], [address], 03/15/2024 10:58:34 Procedure Notes None recorded. Medical Equipment None Reported. Allergies No known drug allergies Medications Name Sig Start Date Stop Date Status Note LastModified by Organization Details LastModified Time doxycycline hyclate 100 mg capsule TAKE 1 CAP TWICE DAILY PO 10 DAYS 11/02 completed Not Available Not Available Not Available hydrocodone 5 mg-acetaminop hen 325 mg tablet Take 1 tablet every 6 hours by oral route as needed. 11/02 completed Not Available Not Available Not Available Synthroid active Not Available Not Antonina ilable Not Available Vitals Date Recorded Body height Body mass index (BMI) Body weight Heart rate Respiratory rate Oxygen saturation Oxygen saturation in Arterial blood by Pulse oximetry Systolic blood pressure Diastolic blood pressure Provider Name and Address Organization Details Last Updated DateTime 4 198.12 cm 30 kg/m2 672462. 02 g 58 /min 14 /min 98 % 98 % 135 mm[Hg] 93 mm[Hg] Jen [facility] [employer] 4 09:46:41 Date Recorded Body height Body mass index (BMI) Body weight Heart rate Respiratory rate Oxygen saturation Oxygen saturation in Arterial blood by Pulse oximetry Systolic blood pressure Diastolic blood pressure Provider Name and Address Organization Details Last Updated DateTime 4 198.12 cm 30 kg/m2 265477. 02 g 66 /min 14 /min 99 % 99 % 151 mm[Hg] 109 mm[Hg] Jen [facility] [employer] 4 14:37:27 Date Recorded Body height Body mass index (BMI) Body weight Heart rate Respiratory rate Oxygen saturation Oxygen saturation in Arterial blood by Pulse oximetry Provider Name and Address Organization Details Last Updated DateTime 4 198.12 cm 30 kg/m2 759172. 02 g 70 /min 14 /min 98 % 98 % Jen Robler[facility] [employer] 4 10:01:29 Date Recorded Body height Body mass index (BMI) Body weight Heart rate Respiratory rate Oxygen saturation Oxygen saturation in Arterial blood by Pulse oximetry Systolic blood pressure Diastolic blood pressure Provider Name and Address Organization Details Last Updated DateTime 4 198.12 cm 30 kg/m2 850658. 02 g 67 /min 14 /min 99 % 99 % 168 mm[Hg] 109 mm[Hg] Jen [facility] [employer] 4 09:35:33 Date Recorded Body height Body mass index (BMI) Body weight Heart rate Respiratory rate Oxygen saturation Oxygen saturation in Arterial blood by Pulse oximetry Systolic blood pressure Diastolic blood pressure Provider Name and Address Organization Details Last Updated DateTime 5 198.12 cm 30 kg/m2 555573. 02 g 63 /min 14 /min 99 % 99 % 151 mm[Hg] 108 mm[Hg] Jen Roblero [place] [facility] [employer] 5 09:05:46 Social History Question Answer Notes LastModified by Organizat ion Details LastModified Time Tobacco Smoking Status Never Smoker Lolis Rocio lopez [employer] [facility] [employer] 11/18/2022 10:22:36 What Is Your Level Of Alcohol Consumption? Occasional [email or web address] Information not available 11/18/2022 Sex: Unknown Functional Status None recorded. Mental Status None recorded. Family History Relationship Description Onset Age of this Age Resolved Age Notes LastModified by Organization Details LastModified Time Unspecified Relation Diabetes mellitus [email or web address] Not available 2022 10:22:09 Unspecified Relation Hypertensive disorder [email or web address] Not available 2022 10:22:17 Unspecified Relation Family history of malignant neoplasm [email or web address] Not available 2022 10:22:25 Medical History Condition Response THYROID DISEASE Y ARTHRITIS Y ANXIETY DISORDER Y BACK / NECK PROBLEMS Y Past Encounters Encounter ID Performer Location Encounter Start Date Encounter Closed Date Diagnosis/Indication Diagnosis SNOMED-CT Code Diagnosis ICD10 Code Diagnosis Note [id number] Gera Mar DPM [facility] [place] [address] [place] [address] 11/18/2022 09:41:40 11/18/2022 11:01:20 Pain in both feet 1209673413 5165707 M79.671 M79.672 secondary to bunions bilateral x-rays reviewed in detail to patientCon servative and surgical options reviewedco ntinue conservati ve therapyFol low-up 1 month Bunion 287449161 M21.61 9 bilateralw orse to the leftcontin ue supportive shoe gear- educated on wide supportive shoerecomm end over-the-c ounter orthotics such as Powerstepr ice therapybun ion silicone sleeves reviewedVo ltaren gel over-the-c ounterif continues to be problemati c may require surgical correction Hammer toe 435906244 M20 .42 2Nd toetreatme nt options reviewedco ntinue conservati ve management [id number] Gera Mar DPM [facility] [place] [address] [place] [address] 01/20/2023 09:29:32 02/05/2023 14:05:28 Bunion 373419255 M21.619 bilateralw orse to the left-obtai n surgical clearancep lanned surgery for February 28plan distal Chevron osteotomy with Dewayne osteotomy and 2nd hammertoe arthroplas ty with pinning recommend over-the-c ounter orthotics such as Powerstepr ice therapycon tinue offloading with supportive wide shoe gearfollow -up postproced ure Pain in both feet 970779 3216 4001383 M79.671 M79.672 secondary to Toe contractur esConserva tive and surgical options reviewed Hammer toe 998939435 M20 .42 2Nd toetreatme nt options reviewedco ntinue conservati ve management [id number] Gera Mar DPM [facility] [place] [address] [place] [address] 03/24/2023 11:04:14 03/24/2023 14:07:07 Postoperative visit 882492831 Z09 status post bunion and hammertoe repairdoin g wellminor bleeding with slight wound dehiscence start doxycyclin e to prevent infectionk eep foot clean and dry and elevate to reduce swellingco mpression dressing applied todayfollo w-up 1 week, monitor for signs of infection at present seek medical attention immediatel y [id number] Gera Mar DPM [facility] [place] [address] [place] [address] 03/31/2023 11:09:37 03/31/2023 11:40:06 Postoperative visit 103930176 Z09 status post bunion and hammertoe repairdoin g welldressi ngs reapplied with mild compressio nincision cleaned with ChloraPrep recommend icingmay return to work keep leg elevated when at restcontin ue use of postop shoefollow -up for x-rays and suture removal 3 weeks [id number] Gera Mar DPM [facility] [place] [address] [place] [address] 04/21/2023 10:02:30 04/21/2023 12:54:52 Postoperative visit 943286845 Z09 status post bunion and hammertoe repairdoin g wellrepeat x-rays revealrema ining sutures removed 2nd toe and great toedressin gs reapplied with mild compressio nincision cleaned with ChloraPrep continue daily with chlorhexid inerecomme nd icingmay return to work keep leg elevated when at restcontin ue use of postop shoefollow -up for x-rays and suture removal 2wk Dehiscence of external surgical incision wound 6864562542 83765 T81.31XD 1st metatarsop halangeal jointdaily cleaning with dressingsr ecommend cleaning daily with chlorhexid ineBetadin e wet-to-dry dressing dailyfollo w-up 2 weeks [id number] Gera Mar DPM [facility] [place] [address] [place] [address] 05/12/2023 09:10:58 05/12/2023 10:20:44 Postoperative visit 839743522 Z09 status post bunion and hammertoe repairdoin g wellrepeat x-rays reveal healing osteotomy with intact hardware 1st metatarsal with healed osteotomy of the Dewayne osteotomy proximal phalanx overall stable correction of 2nd great toeMay continue normal shoe gearEducat ed on taping with sport tape to reduce swellingFo llow-up 7 weeks for repeat x-rays [id number] Gera Mar DPM [facility] [place] [address] [place] [address] 06/30/2023 09:07:32 06/30/2023 09:33:35 Postoperative visit 535458099 Z09 status post bunion and hammertoe repairdoin g wellrepeat x-rays reveal healing osteotomy with intact hardware 1st metatarsal with healed osteotomy of the Dewayne osteotomy proximal phalanx overall stable correction of 2nd great toeMay continue normal shoe gearEducat ed on taping with sport tape to reduce swellingFo llow-up 7 weeks for repeat x-rays [id number] Gera Mar DPM [facility] [place] [address] [place] [address] 08/11/2023 09:01:03 10/10/2023 11:11:57 Bunion 986629086 M21.619 left foot- bunion healedrigh t foot bunion- treatment options reviewed in detailplan - distal Chevron osteotomy with Dewayne osteotomy and tendon capsule balancing of the 1st metatarsop halangeal joint bunion, rightpatie nt will obtain surgical clearancep [facility] September Pain in right foot 18085 44722 36168 M79.671 Hammer toe 219109633 M20 .42 2nd toe- stablecont inue supportive shoe gear Postoperative visit 1836 63245 Z09 status post bunion and hammertoe repairdoin g wellrepeat x-rays reveal healing osteotomy with intact hardware 1st metatarsal with healed osteotomy of the Dewayne osteotomy proximal phalanx overall stable correction of 2nd great toeMay continue normal shoe gearEducat ed on taping with sport tape to reduce swellingFo llow-up 7 weeks for repeat x-rays [id number] Gera Mar DPM [facility] [place] [address] [place] [address] 10/06/2023 16:24:06 10/08/2023 11:43:51 Pain in right foot 0656781759 25337 M79.671 as above Bunion 342907608 M21.61 9 right foot bunion- treatment options reviewed in detailobta in surgical clearancep jes- distal Chevron osteotomy with Dewayne osteotomy and tendon capsule balancing of the 1st metatarsop halangeal joint bunion, rightall risks, benefits, complicati ons reviewed with the patient to complete full understand ing. All questions and concerns were addressed to the patient's complete full understand ing. Patient has risks including but not limited to the following recurrence of bunion, pain, painful scar, hypertroph ic scar, nonhealing wound, infection, hardware failure, nonhealing bone, malunion, nonunion, failed hardware, hardware pain, CRPS, nerve injury, nerve pain. plan for surgery Friday upon clearance [id number] Gera Mar DPM [facility] Pod[facility] [place] [address] [place] [address] 10/13/2023 14:24:31 10/14/2023 10:59:17 Bunion 602949995 M21.619 right foot bunion- distal Chevron osteotomy with Dewayne osteotomy and tendon capsule balancingc ontinue postop shoerice therapy and elevationf ollow-up 1 week for dressing change Postoperative care 55788 9007 Z48.89 status post 3 days right bunion correction [id number] Gera Mar DPM [facility] [place] [address] [place] [address] 10/20/2023 10:01:00 10/20/2023 16:08:03 Postoperative care 988040720 Z48.89 status post 10 days right bunion correction doing wellBetadi ne dressing applied with mild compressio ncontinue postop shoefollow -up next week for x-rays possible suture removal for 2-1/2 week follow-up Postoperative pain 55234 9007 G89.18 mild-to-mo derate [id number] Gera Mar DPM [facility] Pod[facility] [place] [address] [place] [address] 10/27/2023 09:26:15 10/28/2023 13:06:13 Postoperative care 193534039 Z48.89 status post 2weeks right bunion correction doing wellBetadi ne dressing applied with mild compressio ncontinue postop shoefollow -up next week for Suture removal [id number] Gera Mar DPM [facility] [place] [address] [place] [address] 11/03/2023 09:54:54 11/04/2023 16:27:39 Postoperative care 244005857 Z48.89 status post 3 weeks right bunion correction doing wellSuture s removedSte ri-Strips appliedBet adine dressing applied with mild compressio ncontinue postop shoefollow -up next week 2 weeks for repeat x-rays [id number] Gera Mar DPM [facility] Pod[facility] [place] [address] [place] [address] 11/17/2023 16:49:19 11/26/2023 11:55:02 Postoperative care 010139263 Z48.89 status post right bunion correction doing wellSteri- Strips appliedBet adine dressing applied with mild compressio ncontinue postop shoefollow -up next week 2 weeks for repeat x-rays [id number] Gera Mar DPM [facility] [place] [address] [place] [address] 12/08/2023 09:43:15 12/08/2023 16:28:15 Postoperative care 020730843 Z48.89 status post right bunion correction doing Yeimilowly healing osteotomy- screw looseningc ontinue postop shoe- minimal activities elevation and ice when at restcontin ue mild compressio nfollow-up next week 2 weeks for repeat x-rays [id number] Gera Mar DPM [facility] [place] [address] [place] [address] 12/22/2023 09:44:23 12/26/2023 11:19:51 Postoperative care 873957967 Z48.89 status post right bunion correction Slightly worsened x-rays which show backing out of hardware with no significan t healing of the osteotomy siteI did discuss at length treatment options including conservati ve therapy as well as returning to the OR to put in new hardwarewe will continue conservati ve therapy at this time to see if the bone will healcontin ue postop shoe- minimal activities as possibleel evation and ice when at restcontin ue mild compressio nfollow-up next week 2 weeks for repeat x-rays [id number] Gera Mar DPM [facility] Pod[facility] [place] [address] [place] [address] 01/05/2024 09:43:13 01/07/2024 12:04:23 Postoperative care 301964574 Z48.89 status post right bunion correction no changes in alignment- x-rays which show backing out of hardware with callus formation of the osteotomy site to both areascont conservati ve therapy for nowwe will continue conservati ve therapy at this time to see if the bone will healcontin ue postop shoe- minimal activities as possibleel evation and ice when at restcontin ue mild compressio ncont post-op shoe- minimal walkingno strenuous activities lab pendingfol low-up next week 3 weeks for repeat x-rays [id number] Gera Mar DPM [facility] Podiatry [place] [address] [place] [address] 01/26/2024 09:42:36 01/26/2024 11:05:19 Postoperative care 535676560 Z48.89 status post right bunion correction x-rays reviewed with the patient- continued backing out of hardware with healing osteotomy distal 1st metatarsal with healed osteotomy of the proximal phalanxcon t conservati ve therapy for now - patient gets this Fridayfo llow-up in 1 or 2 weeks for surgery pending clearancew e will continue conservati ve therapy at this time to see if the bone will healcontin ue postop shoe- minimal activities as possibleel evation and ice when at restcontin ue mild compressio nno strenuous activities follow-up 2 weeks [id number] Gera Mar DPM [facility] Podiatry [place] [address] [place] [address] 02/16/2024 14:25:24 06/01/2024 15:42:01 Bunion 897137208 M21.619 right foot bunion- distal Chevron osteotomy with Dewayne osteotomy and tendon capsule balancingc ontinue postop shoeloose hardware without open wound or tinting of skinrice therapy and elevationf ollow-up 1 1 month [id number] Gera Mar DPM [facility] Podiatry [place] [address] [place] [address] 03/15/2024 09:49:28 04/08/2024 16:30:44 Bunion 120953113 M21.619 right foot bunion- distal Chevron osteotomy with Dewayne osteotomy and tendon capsule balancingc ontinue normal shoe gearloose hardware without open wound or tinting of skindiscus carla conservati ve and surgical options reviewed with the patient patient elects to return to surgery for hardware removal of the loose hardware. We will perform this under local anesthesia .rice therapy and elevationf ollow-up Post surgery- plan March 26 right foot screw removal right 1st metatarsal Pain in right foot 43195 04272 29904 M79.671 as above Orthopedic hardware in situ 542693428 Z97.8 [id number] Gera Mar DPM [facility] [facility] [place] [address] [place] [address] 03/29/2024 09:30:13 04/09/2024 08:24:51 Postoperative care [id number] Z48.89 status post right bunion screw removaldre ssings changedcon tinue postop shoefollow -up 3 weeks for suture removal [id number] Gera Mar DPM [facility] [place] [address] [place] [address] 04/22/2024 08:59:36 04/27/2024 15:28:40 Postoperative care [id number] Z48.89 status post right bunion screw removalsut ures removedmay return to normal shoe gearfollow -up as needed Health Concerns Section Related Observation LastModified by Organization Detai ls LastModified Time None Recorded Concern Status LastModified by Organization Details LastModified Time None Recorded Advance Directives Directive None Recorded Payers Encounter Date Sequence Insurance Name Policy Number Policy Montero Covered Member ID Montero Member ID Guarantor Name 01/26/2024 [facility] ([facility]) Kulwant Oneil [id number] Kulwant Oneil 03/15/2024 [facility] Kulwant Oneil [id number] Kulwant Oneil 03/29/2024 [facility] ([facility]) Kulwant Oneil [id number] Kulwant Oneil 04/22/2024 [facility] ([facility]) Kulwant Thad [id number] Kulwant Thad Notes Date Note Type Note Provider Name and Address Organization Details Recorded Time 01/26/2024 text/html . Patient is a 58-year-old male who returns the office for follow-up on bunion procedure of the right foot. Patient continues have istp-ax-jwobbmai swelling he states he does not have any significant pain he has no open wounds or tenting of the skin secondary to failure of hardware he has continued healing the osteotomy sites. Patient denies any other complaints. I did review the x-rays again in detail with them which the screw is further and I recommend that he have it removed and possible new hardware placed. Gera Mar DPM [address], [place], [address], [employer] 01/26/2024 10:27:04 02/16/2024 text/html . Patient is a 58-year-old male who returns the office for follow-up on left foot bunion correction. Patient had x-rays was reviewed the x-rays. Patient has a screw that has become loose x1 of the 2. Patient continues have a healing osteotomy site with bone callous formation. Due to the healing osteotomy site and the discontinued migration of the screw I did recommend that we continue conservative therapy at this time due to no pain at the area. Patient understands his risks he is on board with continuing conservative therapy and allowing the osteotomy to heal if it becomes painful or the hardware continues to move then we will remove the hardware. But as of right now it appears stable. Gera Mar DPM [address], [place], [address], [employer] 02/26/2024 11:29:36 03/15/2024 text/html . Patient is a 58-year-old male who returns the office for follow-up on bunion correction of the right foot. Patient has a screw x1 of 2 that is backing out he had repeat x-rays which shows a healed osteotomy of the right 1st metatarsal. Patient has minimal to no swelling. Patient states that he has pain directly over the area the hardware. Patient has no signs of open wounds or tenting of the skin. Patient has moderate scarring of the healed area. Patient states that he recently over the last 10 days has developed more pain directly over the area of the screw that has been backing out. Patient has now osseous changes that are concerning for osteomyelitis. Patient has no open wounds. Patient denies any fever, chills, nausea vomiting. After discussing conservative and surgical options and failing conservative options with continued healing and offloading he elects to return to the operating room to remove the loose screw. I advised this to prevent any open wounds which could lead to infection and amputation. Gera Mar DPM [address], [place], [address], [employer] 03/15/2024 11:02:39 03/29/2024 text/html . Patient is a 58-year-old male who returns the office for follow-up on screw removal secondary to bunion correction. Patient has a small incision he is doing well he has very little swelling. Patient states he had some pain on Friday but states now he is no longer having any pain he denies any fever, chills, nausea vomiting. Patient denies any other complaints. Gera Mar DPM [address], [place], [address], [employer] 03/29/2024 10:00:31 04/22/2024 text/html . Patient is a 58-year-old male who returns the office for follow-up on status post screw removal for bunion procedure. Patient had painful hardware he is completely healed has 3 intact sutures. Patient denies any signs of infection. Patient denies any swelling or discomfort. Patient states he still has on occasion mild discomfort in the great toe but overall he has improved. Patient denies any other complaints. Gera Mar DPM [address], [place], [address], [employer] 04/22/2024 10:03:46
--- OUTSIDE RECORDS SUMMARY | 2024-07-22 10:26 | XMS_ITS | Encounter Summary ---
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 Date/Time Encounter Type Encounter Description Reason Provider Source Jun 22, 2024 10:00 AM OFFICE O/P EST MOD 30 MIN RENAL/NEPHROL(EXCE PT DIALYSIS) ICD-10-CM N18.31 Chronic kidney disease, stage 3a ARTIE BOSWELL [employer]amaal Encounter Template Text not used by [place] Assessments - Encounter Diagnoses This section includes the primary and secondary diagnoses documented for the Encounter. Date/Time Primary/Secondary Diagnosis Diagnosis Name Provider Source Jun 22, 2024 10:31 AM PRIMARY Chronic kidney disease, stage 3a ARTIE BOSWELL [facility] Jun 22, 2024 10:31 AM SECONDARY Vitamin D deficiency, unspecified [facility] Plan of Treatment: Future Appointments (+ 6 months) and Future Tests (+/- 45 days) The Plan of Treatment section includes future care activities for the patient from all [place] [facility]. This section includes future appointments and future orders which are active, pending or scheduled. Future Appointments This section includes appointments that were scheduled to occur 6 months from the date of the Encounter, up to a maximum of 20 appointments. The data comes from all [facility] facilities. Appointment Date/Time Appointment Type Appointme nt Facility Name Jun 23, 2024 03:00 PM [facility] - [facility] Jun 28, 2024 02:00 PM [facility] - [facility] Lab Results: +/- 30 days of the encounter This section includes the Chemistry and Hematology Lab Results on record with [place] for the patient. Radiology Reports and Pathology Reports are provided separately, in subsequent sections. Lab Results This section contains the Chemistry/Hematology Results that were resulted 30 days before or 30 daysafter the date of the Encounter. Date/Time Source Result Type Result - Unit Interpretation Reference Range Comment Jun 24, 2024 01:13 PM [facility] PROTEIN URINE Specimen Type: URINE No comment entered. Ordering Provider: ARTIE BOSWELL Report Released Date/Time: Jun 22, 2024 10:24 AM Reporting Lab: [facility] [address] Performing Lab: [facility] [address] PROTEIN URINE 12.3 mg/dL See Interp Jun 24, 2024 01:13 PM [facility] MICRAL/CREAT PROFILE (STL) Specimen Type: URINE No comment entered. Ordering Provider: ARTIE BOSWELL Report Released Date/Time: Jun 22, 2024 10:24 AM Reporting Lab: [facility] [address] Performing Lab: [facility] [phone] URINE ALBUMIN (PB-STL) 9 mg/L No range refer to micral/crea t ratio uACR (STL) 4 mg/g 0-29 CREATININE URINE/OTHERS 210.4 mg/dL H 63.0-166.0 May 28, 2024 11:40 AM [facility] URINALYSIS (STL-PB) Specimen Type: URINE No comment entered. Ordering Provider: NARA BOYCE Report Released Date/Time: May 27, 2024 10:23 AM Reporting Lab: [facility] [place] [address] Performing Lab: [facility] [place] [address] URINE COLOR Light-Yellow Yellow U.BILIRUBIN Negative mg/dL [...] GRAVITY 1.027 May 28, 2024 11:32 AM [facility] HGA1C Specimen Type: BLOOD No comment entered. Ordering Provider: NARA BOYCE Report Released Date/Time: May 27, 2024 10:23 AM Reporting Lab: [facility] [place] [phone] Performing Lab: [facility] [place] [address] HGA1C 6.3 H 4.0-6.0 May 28, 2024 11:32 AM [facility] LIPID PANEL (STL) Specimen Type: PLASMA Comment: No hemolysis noted. Ordering Provider: NARA BOYCE Report Released Date/Time: May 27, 2024 10:23 AM Reporting Lab: [facility] [phone] Performing Lab: [facility] [address] CHOLESTEROL 215 mg/dL H 0-200 TRIGLYCERIDE 134 mg/dL 0-150 CALCULATED LDL 149 mg/dL See Interp HDL(New) 39 mg/dL L > 40 May 28, 2024 11:32 AM [facility] VITAMIN D, 25-HYDROXY Specimen Type: SERUM Comment: The listed sex of this patient may not be a typical indication for this test. Therefore, reference ranges or interpretive criteria listed may not be valid. Clinical correlation suggested. Ordering Provider: NARA BOYCE Report Released Date/Time: May 27, 2024 10:23 AM Reporting Lab: [facility] [place] [address] Performing Lab: [facility] [place] [address] VITAMIN D, 25-HYDROXY 11.0 ng/mL L 30-96 May 28, 2024 11:32 AM [facility] TSH (MA-PB) Specimen Type: SERUM Comment: The listed sex of this patient may not be a typical indication for this test. Therefore, reference ranges or interpretive criteria listed may not be valid. Clinical correlation suggested. Ordering Provider: NARA BOYCE Report Released Date/Time: May 27, 2024 10:23 AM Reporting Lab: [facility] [place] [address] Performing Lab: [facility] [place] [address] TSH 3.022 u[IU]/mL 0.470-5.000 May 28, 2024 11:32 AM [facility] PROST. SPECIFIC AG.(PB-STL) Specimen Type: SERUM Comment: The listed sex of this patient may not be a typical indication for this test. Therefore, reference ranges or interpretive criteria listed may not be valid. Clinical correlation suggested. Ordering Provider: NARA BOYCE Report Released Date/Time: May 27, 2024 10:23 AM Reporting Lab: [facility] [place] [phone] Performing Lab: [facility] [place] [address] PROST. SPECIFIC AG.(PB-STL) 0.358 ng/mL 0.000-4.000 May 28, 2024 11:32 AM [facility] B12 Specimen Type: SERUM Comment: The listed sex of this patient may not be a typical indication for this test. Therefore, reference ranges or interpretive criteria listed may not be valid. Clinical correlation suggested. Ordering Provider: NARA BOYCE Report Released Date/Time: May 27, 2024 10:23 AM Reporting Lab: [facility] [place] [address] Performing Lab: [facility] [place] [address] B12 227 pg/mL 213-816 May 28, 2024 11:32 AM [facility] COMPREHENSIVE METABOLIC PANEL Specimen Type: PLASMA Comment: No hemolysis noted. Ordering Provider: NARA BOYCE Report Released Date/Time: May 27, 2024 10:23 AM Reporting Lab: [facility] [place] [address] Performing Lab: [facility] [place] [address] CREATININE 1.41 mg/dL H 0.70-1.30 UREA NITROGEN [...] 58.49 >60 May 28, 2024 11:32 AM [facility] CBC Specimen Type: BLOOD No comment entered. Ordering Provider: NARA BOYCE Report Released Date/Time: May 27, 2024 10:23 AM Reporting Lab: [facility] [phone] Performing Lab: [facility] [phone] WBC 3.6 10*3/uL 3.6-11.2 RBC 5.33 10*6/uL [...] Pain Height Weight Body Mass Index Source Jun 22, 2024 10:08 AM 98.2 66 124/81 16 95 0 77 277.[address] [facility] Social History: Smoking Status (Most current) and Tobacco Use (All prior to encounter date) This section includes the most current, and the historical, smoking and tobacco- related health factors from the [place] facility where the Encounter took place. Current Smoking Status This section includes the most current smoking, or tobacco-related health factor, from the [place] facility where the Encounter took place. Date/Time Current Smoking Status Comment Facil ity Aug 08, 2022 09:08 AM VA-TOBACCO NEVER USED [facility] Encounter Notes: All associated encounter notes This section contains the clinical notes associated to the Encounter. Date/Time Encounter Note(s) Provider Source Jun 24, 2024 05:33 PM PHYSICIAN LETTERS: LOCAL TITLE: TEST RESULT NEPHROLOGY LETTER STL STANDARD TITLE: PHYSICIAN LETTERS DATE OF NOTE: JUN 24, 2024@17:33 ENTRY DATE: JUN 24, 2024@17:33:43 AUTHOR: GILMA BOSWELL EXP COSIGNER: URGENCY: STATUS: COMPLETED [facility] [address] [place] [address] JUN 24, 2024 SILVER RICHARDSON [address] [place], [place] [address] Dear Mr. Silver Richardson, I would like to update you on your recent lab results: URINE PROTEIN/MICROALBUMIN: Urine Proteinn: ____ MICRO/CREAT PROFILE: CREATuF: 210.4 (06/24/24 13:13) M/CREAT: 4 (06/24/24 13:13) MICRAL: 9 (06/24/24 13:13) MICRAL/CREAT RATIO: No MICRAL/CREAT RATIO (STL) data found Test results are within normal limits. you have no protein in the urine this is great we do not want protein in the urine! Follow up plan: Please call [phone] if you have any questions. Sincerely, GILMA BOSWELL Nephrology Attending SILVER RICHARDSON JR, STEPHANIE [facility] Jun 22, 2024 10:09 AM NEPHROLOGY CONSULT: LOCAL TITLE: RENAL OUTPATIENT CONSULT STL STANDARD TITLE: NEPHROLOGY CONSULT DATE OF NOTE: JUN 22, 2024@10:09 ENTRY DATE: JUN 22, 2024@10:09:46 AUTHOR: GILMA BOSWELL EXP COSIGNER: URGENCY: STATUS: COMPLETED RENAL CLINIC INITIAL NOTE Reason for referral:CKD HPI: 57 year old male wtih IBD, GERD, hypothryoidismprevious chronic NSAID referred for CKD evaluation. Patient was previusly followed in renal clinic by fellows clinic and then myself - last appt in Feb 2022 - has had bunion surgery, got , bought a new house, and changed his diet and exercising more since his last visit. In terms of diet - has quit alcohol and cut down on coffee consumption - has added more protein, fiber and cut down on sugar in his diet. Eliminated fried food and eating more seafood and fish. In terms of urination - deneis any dysuria or hematuria. Denies any fevers, chills, nausea, or vomiting, no diarrhea. In regards to kidney function, decreased eGFR since at least 2008, Cr ranging 1.3-1.5. Previously was taking Motrin chronically stopped taking awhile ago - last took few years ago PMHx/PSHx Bunion removal on both feet Inflammatory bowel disease Hypothyroidism GERD Outpatient Medications: Active Outpatient Medications (including Supplies): Active Outpatient Medications Status 1) CHOLECALCIF 50MCG (D3-2,000UNIT) TAB TAKE ONE TABLET BY ACTIVE MOUTH ONCE A DAY Indication: FOR VITAMIN D DEFICIENCY 2) DICYCLOMINE HCL 10MG CAP TAKE TWO CAPSULES BY MOUTH THREE ACTIVE TIMES A DAY Indication: FOR IRRITABLE BOWEL SYNDROME PAIN 3) LEVOTHYROXINE NA 75MCG TAB TAKE ONE TABLET BY MOUTH EVERY ACTIVE (S) MORNING BEFORE A MEAL FOR THYROID. TAKE 30 MINUTES BEFORE FOOD. TAKE SEPARATELY FROM ALL OTHER MEDICATIONS. 4) LIDOCAINE 5% PATCH APPLY 1 PATCH TO SKIN SITE ONCE A DAY ACTIVE NEEDED APPLY PATCH AND PRESS FIRMLY FOR 10-15 SECONDS. KEEP ON FOR 12 HOURS THEN REMOVE PATCH FOR 12 HOURS. Indication: FOR LOCAL ANESTHESIA 5) OMEPRAZOLE 40MG EC CAP TAKE ONE CAPSULE BY MOUTH EVERY ACTIVE MORNING BEFORE A MEAL TO LOWER STOMACH ACID. TAKE 30 MINUTES PRIOR TO FOOD. Active Non-VA Medications Status 1) Non-VA ACETAMINOPHEN TAB BY MOUTH ACTIVE 6 Total Medications Allergies:NKDA Family History:DM-2, HTN Social History:lives with ; quit alcohol, no tobacco use or drug use ROS:10 point review of systems otherwise negative Physical exam: Temperature: 98.2 F [36.8 C] (06/22/2024 10:08) Blood Pressure: 124/81 (06/22/2024 10:08) Pulse: 66 (06/22/2024 10:08) Respirations: 16 (06/22/2024 10:08) O2 Saturation: 95% (06/22/2024 10:08) Weight: 277.9 lb [126.05 kg] (06/22/2024 10:08) Height: 77 in [195.6 cm] (06/22/2024 10:08) Gen:alert, NAD HEENT:NCAT Neck:supple Lungs:CTAB CV:normal S1, S2, RRR Abd:non-tender Ext:no edema of LE bilaterally Neuro:no focal deficits Lab Data: CBC: WBC 3.6 10*3/uL 05/28/2024 11:32 RBC 5.33 10*6/uL 05/28/2024 11:32 HGB 14.0 g/dL 05/28/2024 11:32 HCT 43.3 % 05/28/2024 11:32 MCV 81.2 fL 05/28/2024 11:32 MCH 26.3 L pg 05/28/2024 11:32 MCHC 32.3 L g/dL 05/28/2024 11:32 RDW 14.5 % 05/28/2024 11:32 PLT 211 10*3/uL 05/28/2024 11:32 MPV 11.8 H fL 05/28/2024 11:32 NEUTROPHILS, AUTO % 36 % 05/28/2024 11:32 LYMPHOCYTES, AUTO % 51 % 05/28/2024 11:32 MONOCYTES, AUTO % 11 % 05/28/2024 11:32 EOSINOPHILS, AUTO % 1 % 05/28/2024 11:32 BASOPHILS, AUTO % 1 % 05/28/2024 11:32 NEUTROPHILS, ABSOLUTE 1.31 L 10*3/uL 05/28/2024 11:32 LYMPHOCYTES, ABSOLUTE 1.84 10*3/uL 05/28/2024 11:32 MONOCYTES, ABSOLUTE 0.38 10*3/uL 05/28/2024 11:32 EOSINOPHILS, ABSOLUTE 0.05 10*3/uL 05/28/2024 11:32 BASOPHILS, ABSOLUTE 0.03 10*3/uL 05/28/2024 11:32 Renal Function Panel: SODIUM 141 mEq/L 05/28/2024 11:32 POTASSIUM 4.1 mEq/L 05/28/2024 11:32 CHLORIDE 106 mEq/L 05/28/2024 11:32 UREA NITROGEN 10.9 mg/dL 05/28/2024 11:32 CREATININE 1.41 H mg/dL 05/28/2024 11:32 CALCIUM 9.8 mg/dL 05/28/2024 11:32 CARBON DIOXIDE 27 mEq/L 05/28/2024 11:32 GLUCOSE 94 mg/dL 05/28/2024 11:32 EGFR (CKD-EPI 2020) 58.49 05/28/2024 11:32 ALBUMIN 4.3 g/dL 05/28/2024 11:32 PHOSPHOROUS 3.0 mg/dL 05/29/2023 11:07 Intact PTH:83.6 05/2023 VITAMIN D, 25-HYDROXY 11.0 L ng/mL 05/28/2024 11:32 Urine Studies: URINE COLOR Light-Yellow 05/28/2024 11:40 APPEARANCE Clear 05/28/2024 11:40 U.PH 6.0 05/28/2024 11:40 U.BILIRUBIN Negative mg/dL 05/28/2024 11:40 U.NITRITE Negative mg/dL 05/28/2024 11:40 URINE RBC/HPF 3 /HPF 05/28/2024 11:40 URINE WBC/HPF 1 /HPF 05/28/2024 11:40 SQUAMOUS EPITH. <1 /HPF 05/28/2024 11:40 MUCUS RARE /LPF 05/28/2024 11:40 CREATuF: 97.6 (05/29/23 11:13) M/CREAT: comment (05/29/23 11:13) MICRAL: <5 (05/29/23 11:13) Imaging: [facility] US 05/10/19: FINDINGS: The right kidney measures 12.7 x 5.0 x 4.9 cm. The left kidney measures 12.2 x 5.0 x 5.8 cm. The echogenicity of both kidneys is normal. The corticomedullary differentiation is normal. There is no hydronephrosis in either kidney. No mass or calculus is identified. The urinary bladder is normal. Impression: 1. Normal renal ultrasound. 2. No hydronephrosis. Assessment/Recommendations:57 year old male wtih IBD, GERD, hypothryoidismprevious chronic NSAID referred for CKD evaluation. #CKD Stage IIIA A1 - likely from previous chronic NSAID use - renal function stable - obtain [place] quantification - avoid NSAIDS #Vitamin D deficinecy - started on rusty supplementation #Acid-base - bicarb wnl Not anemic Not hypertensive #Dispo - Pr/CR quantification today or tomorrow at [facility] - RTC 1 year with repeat labwork On the date of the encounter, I spent 25 minutes on some or all of the following:chart review, history, physical examination, treatment planning, education and counseling of the patient/family/health care manager, placing orders, communicating with other health care providers, and documentation in the electronic health record /nicholas/ GILMA BOSWELL Nephrology Attending Signed: 06/22/2024 10:31 GILMA BOSWELL [facility]
--- OUTSIDE RECORDS SUMMARY | 2024-07-22 10:26 | XMS_ITS | Encounter Summary ---
Author Name [facility] [place] [facility] [place] Address [address] [place] [address] Care Team Providers Care Assistant Director Of Residence Life Name Role Phone NARA BOYCE Primary Care [...] section includes the information on record at [place] for the Encounter. Date/Time Encounter Type Encounter Description Reason Provider Source September 01, 2023 09:45 AM IMMUNIZATION ADMIN PRIMARY CARE/MEDICINE ICD-10-CM Z23 Encounter for immunization AUSTYN KAPLAN [facility] Encounter Template Text not used by [place] Assessments - Encounter Diagnoses This section includes the primary and secondary diagnoses documented for the Encounter. Date/Time Primary/Secondary Diagnosis Diagnosis Name Provider Source September 12, 2023 03:44 PM PRIMARY Encounter for immunization AUSTYN KAPLAN [facility] Plan of Treatment: Future Appointments (+ 6 months) and Future Tests (+/- 45 days) The Plan of Treatment section includes future care activities for the patient from all [place] treatment[place]ilities. This section includes future appointments and future orders which are active, pending or scheduled. Future Appointments This section includes appointments that were scheduled to occur 6 months from the date of the Encounter, up to a maximum of 20 appointments. The data comes from all [place] treatment facilities. Appointment Date/Time Appointment Type Appointme nt Facility Name September 12, 2023 02:45 PM AMBULATORY - MEDICINE [facility] Feb 05, 2024 01:30 PM [facility]BUL[facility]ORY - SUR[facility]ERY [facility] Feb 12, 2024 07:00 AM [facility]ICINE [facility] Lab Results: +/- 30 days of the encounter This section includes the Chemistry and Hematology Lab Results on record with [place] for the patient. Radiology Reports and Pathology Reports are provided separately, in subsequent sections. Lab Results This section contains the Chemistry/Hematology Results that were resulted 30 days before or 30 daysafter the date of the Encounter. Date/Time Source Result Type Result - Unit Interpretation Reference Range Comment Sep 15, 2023 12:22 PM [facility] APTT Specimen Type: PLASMA No comment entered. Ordering Provider: NARA BOYCE Report Released Date/Time: September 04, 2023 08:43 AM Reporting Lab: [facility] [id number] Performing Lab: [facility] [phone] APTT 32.5 s 26.7-39.9 Sep 15, 2023 12:22 PM [facility] PT/INR NEW ([facility] Specimen Type: PLASMA No comment entered. Ordering Provider: NARA BOYCE Report Released Date/Time: September 04, 2023 08:43 AM Reporting Lab: [facility] [phone] Performing Lab: [facility] [id number] PROTIME 11.1 s 9.4-12.5 INR VALUE 1.0 {INR} Sep 15, 2023 12:22 PM [facility] CBC Specimen Type: BLOOD No comment entered. Ordering Provider: NARA BOYCE Report Released Date/Time: September 04, 2023 08:43 AM Reporting Lab: [facility] [phone] Performing Lab: [facility] [id number] WBC 3.6 10*3/uL 3.6-11.2 RBC 5.30 10*6/uL 4.10-5.70 HGB 13.9 g/dL 13.1-16.8 HCT 42.9 38.2-48.4 MCV 80.9 fL 80.0-100.0 MCH 26.2 pg L 27.0-34.0 MCHC 32.4 g/dL L 33.0-36.0 PLT 219 10*3/uL 150-400 MPV 11.4 fL H 7.5-11.2 RDW 14.7 11.8-15.1 LYMPHOCYTES, AUTO % 48 MONOCYTES, AUTO % 11 NEUTROPHILS, AUTO % 38 EOSINOPHILS, AUTO % 1 BASOPHILS, AUTO % 1 LYMPHOCYTES, ABSOLUTE 1.71 10*3/uL 0.77-4.50 MONOCYTES, ABSOLUTE 0.39 10*3/uL 0.19-0.80 NEUTROPHILS, ABSOLUTE 1.36 10*3/uL L 2.10-8.00 EOSINOPHILS, ABSOLUTE 0.05 10*3/uL 0.00-0.60 BASOPHILS, ABSOLUTE 0.02 10*3/uL 0.00-0.20 Sep 15, 2023 12:22 PM [facility] COMPREHENSIVE METABOLIC PANEL Specimen Type: PLASMA Comment: No hemolysis noted. Ordering Provider: NARA BOYCE Report Released Date/Time: September 04, 2023 08:43 AM Reporting Lab: [facility] [phone] Performing Lab: [facility] [phone] CREATININE 1.55 mg/dL H 0.70-1.30 UREA NITROGEN 15.9 mg/dL 9.0-25.0 GLUCOSE 92 mg/dL 72-99 SODIUM 141 meq/L 136-145 POTASSIUM 4.0 meq/L 3.5-5.0 CHLORIDE 107 meq/L 98-107 CARBON DIOXIDE 26 meq/L 22-31 CALCIUM 9.5 mg/dL 8.4-10.4 PROTEIN 7.9 g/dL 6.0-8.6 ALBUMIN 4.3 g/dL 3.4-5.0 TOTAL BILIRUBIN 0.4 mg/dL 0.2-1.2 ALKALINE PHOSPHATASE 79 U/L 40-150 AST/SGOT 25 U/L 5-34 ALT/SGPT 36 U/L 8-40 EGFR (CKD-EPI 2020) 52.21 >60 Immunizations: All administered on the encounter date This section contains immunizations associated to the Encounter. Immunization Series Date Issued Reaction Comments ZOSTER RECOMBINANT September 01, 2023 Social History: Smoking Status (Most current) and Tobacco Use (All prior to encounter date) This section includes the most current, and the historical, smoking and tobacco- related health factors from the [place] facility where the Encounter took place. Current Smoking Status This section includes the most current smoking, or tobacco-related health factor, from the [place] facility where the Encounter took place. Date/Time Current Smoking Status Comment Lisa ity September 06, 2020 03:30 PM [facility]-TO[facility]ACCO [facility] Tobacco Use History This section includes a history of the smoking, or tobacco-related health factors, that were collected on or before the date of the Encounter. The data comes from the [place] facility where the Encounter took place. Date/Time Smoking Status/Tobacco Use Comment F acility Apr 27, 2018 02:36 PM VA-TOBACCO NEVER [facility]ED [facility] Nov 06, 2016 02:56 PM LIFETIME NON-USER OF TOBACCO [facility] August 14, 2016 02:09 PM LIFETIME NON-USER OF TOBACCO [facility] Nov 25, 2014 12:51 PM LIFETIME NON-USER OF TOBACCO [facility] May 14, 2013 11:31 AM LIFETIME NON-USER OF TOBACCO [facility] August 12, 2008 07:48 AM LIFETIME NON-USER OF TOBACCO [facility] Encounter Notes: All associated encounter notes This section contains the clinical notes associated to the Encounter. Date/Time Encounter Note(s) Provider Source September 01, 2023 10:07 AM NURSING NOTE: LOCAL TITLE: V15 PACT FACE TO FACE NOTE STL STANDARD TITLE: NURSING NOTE DATE OF NOTE: SEPTEMBER 01, 2023@10:07 ENTRY DATE: SEPTEMBER 01, 2023@10:07:40 AUTHOR: PEPPER,AUSTYN J EXP COSIGNER: URGENCY: STATUS: COMPLETED Nurse Visit: Patient Identifiers : Full Name Date of Reason for visit: 2nd shingrix injection Mode of Arrival: Ambulatory Allergy Review: Patient has answered NKA Allergy list reviewed and remains current. Recent Vital Signs: Temperature: 97.8 F [36.6 C] (12/05/2022 08:32) Pulse: 67 (12/05/2022 08:32) Respiration: 18 (12/05/2022 08:32) B/P: 121/86 (12/05/2022 08:32) Pain: 7 (12/05/2022 08:32) Wt: 269 lb [122.02 kg] (11/15/2022 13:04) Ht: 77 in [195.6 cm] (11/15/2022 13:04) BMI: 32.0 POX: 95% (12/05/2022 08:32) Clinic Administered Medications: Indication: shingris injection Provider order verified Allergies verified Verbalized understanding and verbal consent given for the following clinic administered medication: Medication #1: Source of Medication: Clinic Supplied Medication: shingrix Amount/Dose Ordered: 0.5ml Drophammer Operator: [employer] Labine Lot#: [id number] Exp Date: 07/29/2025 Route: IM Injection site: Left Deltoid Patient toleration: Tolerated well Follow up instructions: No follow up required Contact provided Primary Care phone number and encouraged to call if any questions or concerns. Review that after hours nurse line [phone] and emergency room are available 04/11 for patient use. Herpes Zoster (Shingles) Vaccine: Administered: ZOSTER RECOMBINANT Date Administered: September 01, 2023 09:45 Series: Complete Drophammer Operator: [id number] Lot: [id number] Exp Date: Jul 29, 2025 [facility]: [id number] Admin Route/Site: INTRAMUSCULAR/LEFT DELTOID Dosage: 0.5mL Vaccine Information Statement(s): RECOMBINANT ZOSTER VACCINE VIS May 18, 2021 (SERBIAN) Order By: Policy Administered By: Austyn Kaplan Vaccine Information Sheet (VIS) was given to the patient/caregiver, education regarding adverse reactions was discussed, as well as barriers to learning, if any, were acknowledged. /nicholas/ Austyn Kaplan Rn, BSN REGISTERED NURSE Signed: 09/01/2023 10:11 AUSTYN KAPLAN [facility]
--- OUTSIDE RECORDS SUMMARY | 2024-07-22 10:26 | XMS_ITS | Encounter Summary ---
Author Name [facility] [place] Organization [place] Address [address] [place] [address] Care Team Providers Care Glove Examiner Name Role Phone DEVORA BOYCE Primary Care [...] section includes the information on record at [place] for the Encounter. Date/Time Encounter Type Encounter Description Reason Pro vider Source Jan 09, 2024 04:04 PM Outpatient Encounter GENERAL INTERNAL MEDICINE IHE Encounter Template Text not used by [place] Plan of Treatment: Future Appointments (+ 6 months) and Future Tests (+/- 45 days) The Plan of Treatment section includes future care activities for the patient from all [place] treatmentfacilities. This section includes future appointments and future orders which are active, pending or scheduled. Future Appointments This section includes appointments that were scheduled to occur 6 months from the date of the Encounter, up to a maximum of 20 appointments. The data comes from all [place] treatment facilities. Appointment Date/Time Appointment Type Appointme nt Facility Name Feb 05, 2024 01:30 PM AMBULATORY - SURGERY [facility] Feb 12, 2024 07:00 AM AMBULATORY - MEDICINE [facility] May 27, 2024 10:00 AM AMBULATORY - MEDICINE [facility] Jun 14, 2024 02:00 PM AMBULATORY - MEDICINE [facility] Jun 22, 2024 10:00 AM AMBULATORY - MEDICINE [facility] Jun 23, 2024 03:00 PM AMBULATORY - MEDICINE [facility] Jun 28, 2024 02:00 PM AMBULATORY - MEDICINE [facility] Social History: Smoking Status (Most current) and Tobacco Use (All prior to encounter date) This section includes the most current, and the historical, smoking and tobacco- related health factors from the [place] facility where the Encounter took place. Current Smoking Status This section includes the most current smoking, or tobacco-related health factor, from the [place] facility where the Encounter took place. Date/Time Current Smoking Status Comment Facil ity Aug 08, 2022 09:08 AM [place]-TOBACCO NEVER USED [facility] Encounter Notes: All associated encounter notes This section contains the clinical notes associated to the Encounter. Date/Time Encounter Note(s) Provider Source Jan 12, 2024 03:04 PM ADDENDUM: LOCAL TITLE: Addendum STANDARD TITLE: ADDENDUM DATE OF NOTE: JAN 12, 2024@15:04:20 ENTRY DATE: JAN 12, 2024@15:04:21 AUTHOR: DEVORA BOYCE EXP COSIGNER: URGENCY: STATUS: COMPLETED [facility] podiatry consult has been placed for f/u. Recommend patient contact [facility] for further information regarding this consult. RNCM please notify patient. Thank you! /nicholas/ Devora Boyce DNP, MACHINE BUFFER, ARMOURED CAR ESCORT-C Primary Care Nurse Practitioner Signed: 01/12/2024 15:05 Receipt Acknowledged By: 01/13/2024 15:39 /nicholas/ KATELYN ATKINSON RN BSN REGISTERED NURSE --- Original Document --- 01/09/24 COMMUNITY CARE-CARE COORDINATION PLAN NOTE 657 STL: [place] called in at the request of his PCP office. [place] has an [facility] consult that 12.27.23. received surgery on his foot and is having issues with the hardware placed from that surgery. states his foot is swollen and exhibiting pain. [place] advised to have [facility] provider fax RFS with clinical notes and to contact [facility] for a possible inhouse appointment. [facility] Provider [facility] Gera Mar DPM [address] [place] [address] fax: [phone] /nicholas/ LINCOLN NÚÑEZ ADVANCED FOOD SAFETY SPECIALIST Signed: 01/09/2024 16:08 Receipt Acknowledged By: 01/12/2024 15:04 /es/ Devora Boyce DNP, MACHINE BUFFER, ARMOURED CAR ESCORT-C Primary Care Nurse Practitioner DEVORA BOYCE [facility] Jan 09, 2024 04:04 PM NONVA NOTE: LOCAL TITLE: COMMUNITY CARE-CARE COORDINATION PLAN NOTE 657 STL STANDARD TITLE: NONVA NOTE DATE OF NOTE: JAN 09, 2024@16:04 ENTRY DATE: JAN 09, 2024@16:07:31 AUTHOR: LINCOLN NÚÑEZ EXP COSIGNER: URGENCY: STATUS: COMPLETED COMMUNITY CARE-CARE COORDINATION PLAN NOTE 657 STL Has ADDENDA [place] called in at the request of his PCP office. [place] has an [facility] consult that 12.27.23. received surgery on his foot and is having issues with the hardware placed from that surgery. states his foot is swollen and exhibiting pain. advised to have [facility] provider fax RFS with clinical notes and to contact [facility] for a possible inhouse appointment. [facility] Provider [facility] Gera Mar DPM [address] [place] [address] fax: [phone] /marty NÚÑEZ ADVANCED FOOD SAFETY SPECIALIST Signed: 01/09/2024 16:08 Receipt Acknowledged By: 01/12/2024 15:04 /nicholas/ Devora Boyce DNP, APRN, YINKA Primary Care Nurse Practitioner 01/12/2024 ADDENDUM STATUS: COMPLETED [facility] podiatry consult has been placed for f/u. Recommend patient contact [facility] for further information regarding this consult. RNCM please notify patient. Thank you! /nicholas/ Devora Boyce DNP, APRN, SUYAPA-C Primary Care Nurse Practitioner Signed: 01/12/2024 15:05 Receipt Acknowledged By: * AWAITING SIGNATURE * KATELYN ATKINSON,[facility]
--- OUTSIDE RECORDS SUMMARY | 2024-07-22 10:26 | XMS_ITS | Encounter Summary ---
Author Name [facility] of [facility] [place] [facility] [place] Organization [facility] [place] Address [address] [place] [address] Care Team Providers Care Predatory Hunter Name Role Phone NARA BOYCE Primary Care [...] section includes the information on record at [place] for the Encounter. Date/Time Encounter Type Encounter Description Reason Provider Source August 18, 2023 08:30 AM MOD SED SAME PHYS/QHP EA GI ENDOSCOPY ICD-10-CM Z12.11 Encounter for screening for malignant neoplasm of colon TROY GARZA Encounter Template Text not used by [place] Assessments - Encounter Diagnoses This section includes the primary and secondary diagnoses documented for the Encounter. Date/Time Primary/Secondary Diagnosis Diagnosis Name Provider Source September 03, 2023 03:19 PM PRIMARY Encounter for screening for malignant neoplasm of colon VALERIO TREJO [facility] Plan of Treatment: Future Appointments (+ 6 months) and Future Tests (+/- 45 days) The Plan of Treatment section includes future care activities for the patient from all [place] treatmentfacilities. This section includes future appointments and future orders which are active, pending or scheduled. Future Appointments This section includes appointments that were scheduled to occur 6 months from the date of the Encounter, up to a maximum of 20 appointments. The data comes from all [place] treatment facilities. Appointment Date/Time Appointment Type Appointme nt Facility Name September 01, 2023 09:45 AM AMBULATORY - MEDICINE [facility] September 12, 2023 02:45 PM AMBULATORY - MEDICINE [facility] Feb 05, 2024 01:30 PM AM[facility]UL[facility]ORY - [facility] Feb 12, 2024 07:00 AM AMBULATORY - MEDICINE [facility] Lab Results: +/- 30 days of [...] Range Comment Sep 15, 2023 12:22 PM [facility] APTT Specimen Type: PLASMA No comment entered. Ordering Provider: NARA BOYCE Report Released Date/Time: September 04, 2023 08:43 AM Reporting Lab: [facility] [phone] Performing Lab: [facility] [id number] APTT 32.5 s 26.7-39.9 Sep 15, 2023 12:22 PM [facility] PT/INR NEW ([facility]) Specimen Type: PLASMA No comment entered. Ordering Provider: NARA BOYCE Report Released Date/Time: September 04, 2023 08:43 AM Reporting Lab: [facility] [phone] Performing Lab: [facility] [phone] PROTIME 11.1 s 9.4-12.5 INR VALUE 1.0 {INR} Sep 15, 2023 12:22 PM [facility] CBC Specimen Type: BLOOD No comment entered. Ordering Provider: NARA BOYCE Report Released Date/Time: September 04, 2023 08:43 AM Reporting Lab: [facility] [phone] Performing Lab: [facility] [phone] WBC 3.6 10*3/uL 3.6-11.2 RBC 5.30 10*6/uL [...] 10*3/uL 0.00-0.20 Sep 15, 2023 12:22 PM [facility] COMPREHENSIVE METABOLIC PANEL Specimen Type: PLASMA Comment: No hemolysis noted. Ordering Provider: NARA BOYCE Report Released Date/Time: September 04, 2023 08:43 AM Reporting Lab: [facility] [phone] Performing Lab: [facility] [phone] CREATININE 1.55 mg/dL H 0.70-1.30 UREA NITROGEN [...] U/L 8-40 EGFR (CKD-EPI 2020) 52.21 >60 Social History: Smoking Status (Most current) and Tobacco Use (All prior to encounter date) This section includes the most current, and the historical, smoking and tobacco- related health factors from the [place] facility where the Encounter took place. Current Smoking Status This section includes the most current smoking, or tobacco-related health factor, from the [place] facility where the Encounter took place. Date/Time Current Smoking Status Comment Facil ity Aug 08, 2022 09:08 AM [place]-TOBACCO NEVER USED [facility] Encounter Notes: All associated encounter notes This section contains the clinical notes associated to the Encounter. Date/Time Encounter Note(s) Provider Source August 18, 2023 08:56 AM PREPROCEDURE NOTE: LOCAL TITLE: PHYSICIAN PRE-PROCEDURE ASSESSMENT ST STANDARD TITLE: PREPROCEDURE NOTE DATE OF NOTE: AUGUST 18, 2023@08:56 ENTRY DATE: AUGUST 18, 2023@08:56:54 AUTHOR: VALERIO TREJO EXP COSIGNER: URGENCY: STATUS: COMPLETED Airway: No significant abnormality Mallampati Score: 2 Neck Extension: Not Limited Teeth: No significant abnormality Cardiac: No significant abnormality Pulmonary: No significant abnormality Gastrointestinal: No significant abnormality Neurological: No significant abnormality ASA Score: 2 Abdominal and Pelvic Surgical History: no previous abd/pelvic surg Sedation/Anesthesia Plan: Moderate sedation History of previous adverse reaction to sedation: No Tobacco use: No Alcohol use: Yes Recreational drug use: No Last oral intake:0230 Time spent:5-9 minutes See provation for full report; procedure aborted at descending colon due to solid and liquid stool; repeat colon w/ 2 day GL under conscious sedation; pt tolerated sedation well. Orders written. /nicholas/ VALERIO TREJO Physician Loom Changeover Operator, Gastroenterology Signed: 08/18/2023 09:50 [facility]
--- OUTSIDE RECORDS SUMMARY | 2024-07-22 10:26 | XMS_ITS | Encounter Summary ---
Author Name [facility] [place] Address [address] [place] [address] Care Team Providers Care Shaker Repairer Name Role Phone NARA BOYCE Primary Care Provider Unavailmisti tejeda Insurance Providers: All historical and current Section [...] section includes the information on record at [place] for the Encounter. Date/Time Encounter Type Encounter Description Reason Provider Source Feb 12, 2024 07:00 AM DIAGNOSTIC COLONOSCOPY GI ENDOSCOPY ICD-10-CM K58.9 Irritable bowel syndrome, unspecified MARIO GIL [facility] Encounter Template Text not used by [place] Assessments - Encounter Diagnoses This section includes the primary and secondary diagnoses documented for the Encounter. Date/Time Primary/Secondary Diagnosis Diagnosis Name Provider Source Feb 27, 2024 10:34 AM PRIMARY Irritable bowel syndrome, unspecified NAVID GIL [facility] Plan of Treatment: Future Appointments (+ 6 months) and Future Tests (+/- 45 days) The Plan of Treatment section includes future care activities for the patient from all [place] treatmentfacilities. This section includes future appointments and future orders which are active, pending or scheduled. Future Appointments This section includes appointments that were scheduled to occur 6 months from the date of the Encounter, up to a maximum of 20 appointments. The data comes from all [facility] facilities. Appointment Date/Time Appointment Type Appointme nt Facility Name May 27, 2024 10:00 AM AMBULATORY - MEDICINE [facility] Jun 14, 2024 02:00 PM AMBULATORY - MEDICINE [facility] Jun 22, 2024 10:00 AM [facility] Jun 23, 2024 03:00 PM AMBULATORY - MEDICINE [facility] Jun 28, 2024 02:00 PM AMBULATORY - MEDICINE [facility] Social History: Smoking Status (Most current) and Tobacco Use (All prior to encounter date) This section includes the most current, and the historical, smoking and tobacco- related health factors from the [place] facility where the Encounter took place. Current Smoking Status This section includes the most current smoking, or tobacco-related health factor, from the [facility] where the Encounter took place. Date/Time Current Smoking Status Comment Facil ity Aug 08, 2022 09:08 AM [place]-TOBACCO NEVER USED [facility] Encounter Notes: All associated encounter notes This section contains the clinical notes associated to the Encounter. Date/Time Encounter Note(s) Provider Source Feb 12, 2024 07:50 AM PREPROCEDURE NOTE: LOCAL TITLE: PHYSICIAN PRE-PROCEDURE ASSESSMENT ST STANDARD TITLE: PREPROCEDURE NOTE DATE OF NOTE: FEB 12, 2024@07:50 ENTRY DATE: FEB 12, 2024@07:50:28 AUTHOR: NAVID GIL COSIGNER: URGENCY: STATUS: COMPLETED Airway: No significant abnormality Mallampati Score: 2 Neck Extension: Not Limited Teeth: No significant abnormality Cardiac: No significant abnormality Pulmonary: No significant abnormality Gastrointestinal: No significant abnormality Neurological: No significant abnormality ASA Score: 2 Abdominal and Pelvic Surgical History: Sedation/Anesthesia Plan: Moderate sedation History of previous adverse reaction to sedation: Yes Tobacco use: No Alcohol use: No Recreational drug use: No Last oral intake: Time spent:0-5 minutes /nicholas/ Navid Gil PA-C Physician Open Claims Representative Gastroenterology Signed: 02/12/2024 08:20 NAVID GIL [facility]
[2024-07-22 10:48] VITALS: BP 119/84; PULSE 50; RESP 18; O2SAT 97
--- NOTE | 2024-07-22 17:35 | P.CONNEU_ITS ---
Assessment and Plan Assessment and plan (1) Left-sided headache: Code(s): R51.9 - Headache, unspecified Status: Acute (2) Paresthesias in right hand: Code(s): R20.2 - Paresthesia of skin Status: Acute Plan Neurologic examination did not reveal any significant abnormal findings. There is no history of migraine. Based upon the presentation a MRI of the brain would be recommended. 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 Hence I thought that MRI of the brain with MR angiography of the intracranial vessels may be helpful for further evaluation however patient signed out AMA subsequently. Consult date: 07/22/24 HPI: Kulwant Oneil is a 59 year old male was seen in the emergency room at the request of ER provider. Presented to the hospital with the history that he had sudden severe left sided headache last night. It only lasted for minute or so however he went to sleep and this morning when he woke up he had recurrence of the pain however this time it seems to be ongoing. When he arrived in the emergency room before that he was already having some numbness in the right arm which was new. The emergency room provider gave him some usual cocktail for migraine and that seemed to have helped his pain. He also had a CT scan of brain and CT angiogram head and neck which did not show any significant abnormality. Patient denies any history of chronic headache or migraine. No history of recent head trauma or febrile illness. He has been in usual state of health. Review of Systems 2 Review of Systems: All systems reviewed & are unremarkable except as noted in HPI and below Meds Home Medications and Allergies Allergies Allergy/AdvReac Type Severity Reaction Status Date / Time No Known Allergies Allergy Verified 07/22/24 09:11 Vital Signs Vital Signs - 24 hr 07/22/24 09:17 07/22/24 10:48 Temperature 98 F Pulse Rate 52 L 50 L Respiratory Rate 16 18 Blood Pressure 131/81 119/84 Pulse Oximetry 97 97 Oxygen Delivery Room Air Exam 2 Const: General: cooperative, well developed and alert O rientation/consciousness: patient oriented x3 HENMT: Head: atraumatic Eyes: Alignment and Position: position normal Pupils: Equal, round and reactive pupils present EOM: EOMs intact bilaterally Neck: Neck: supple Resp: Effort & Inspection: normal respiratory effort Cardio: Rate: regular rate Rhythm: regular rhythm Skin: General skin exam: normal color Neuro: General: patient oriented x3 Cranial nerves: Yes CN's II-XII intact bilaterally, Yes facial sensation intact/muscles of mastication intact, Yes Equal, round and reactive pupils present, Yes facial symmetry and Yes Midline tongue present Cognition (Neuro): normal cognition Speech: normal speech Motor exam (neuro): 5/5 motor strength present throughout Sensory Exam: n ormal sensation Coordination: [id number] test normal and Normal rapid alternating movements of the distal upper extremity present (Neuro) Results Labs 07/22/24 09:31 07/22/24 09:31 Labs: Short CBC 07/22/24 Range/Units 09:31 WBC 3.7 L (4.5-10.0) K/mm3 Hgb 12.8 L (14.0-18.0) g/dL Hct 40.7 L (42.0-52.0) % Plt Count 204 (150-375) k/mm3 BMP 07/22/24 09:31 Sodium 142 Potassium 4.1 Chloride 106 Carbon Dioxide 28 BUN 13 Creatinine 1.41 H Glucose 96 Calcium 9.1 Cardiac Enzymes 07/22/24 Range/Units 09:31 Troponin I < 0.012 (0.000-0.034) ng/mL Liver Function 07/22/24 Range/Units 09:31 Total Bilirubin 0.3 (0.2-1.3) mg/dL AST 32 (17-59) U/L ALT 27 (6-50) U/L Alkaline Phosphatase 60 (38-126) U/L Albumin 4.0 (3.5-5.1) g/dL
== END 2024-07-22 12:39 | disposition left against medical advice (07) ==
PROVIDERS: Emergency Provider Physician Assistant
DX: R51.9 Headache, unspecified (principal); R20.2 Paresthesia of skin; R55 Syncope and collapse; E03.9 Hypothyroidism, unspecified; K21.9 Gastro-esophageal reflux disease without esophagitis; I51.7 Cardiomegaly; R00.1 Bradycardia, unspecified
CPT/HCPCS: 36415; 70450; 70496; 70498; 71045; 80053; 84443; 84484; 85025; 85610; 85730; 93005; 96361; 96374; 96375; 99284; A9270; J1200; J2765; J7030; Q9967